=== PATIENT | male | born 1945 | race Caucasian/White ===

== ENCOUNTER 2020-11-07 20:08 | Inpatient (IN) | payer MEDICARE, SELFPAY ==
[~2020-11-07] VITALS: Ht 172.7 cm; Wt 65.5 kg
[2020-11-07] MEDS ORDERED: THIAMINE 100 MG TAB PO SCH (21:00)
[2020-11-07] MEDS ORDERED: MAALOX 30 ML SUSP *UDC PO PRN (21:15)
[2020-11-07] MEDS ORDERED: MOM 30ML SUSPENSION UDC PO PRN (21:15)
[2020-11-07] MEDS ORDERED: LORazepam 2 MG TAB PO PRN (21:15)
[2020-11-07] MEDS ORDERED: ACETAMINOPHEN TAB 650MG DOSE (2X325MG) PO PRN (21:15)
--- NOTE | 2020-11-07 21:21 | HPEPDOC ---
[facility] Medical History & Physical Date of Admission Nov 07, 2020 Date of Service: Nov 07, 2020 Attending Physician: MÓNICA ARSHAD MD History and Physical TIME OF SERVICE: 945pm CHIEF COMPLAINT: altered mental status HISTORY OF PRESENT ILLNESS: The history was obtained from chart review; the patient was sedated after receiving Ativan. Based on records from [facility] had a fall about 1 week ago and hurt he left side of his chest. Besides the trauma, yesterday he was in his usual state of health and gone out to a bar to drink alcohol; today his family found him in a confused state and called EMS. En route to [facility] ER he became combative and was given Ativan. Based on the ER notes the patient was intermittently arousable w sternal rub but proceeded to fall asleep again. Test results from [facility]: WBC 8.7, Hg 15.1, Plt 209, INR 1, PT 11, Sodium 123, K 4, Cl 88, CO2 25, BUN 11, Cr 0.9, Gluc 107, T Bii 0.8, ALT 22, AST 27, ALP 97, albumin 3.3, Ca 8.6. Mag 1.5, Phosp 3 UA unremarkable. Chest xray Acute nondisplaced fracture of the lateral aspect of the left eight rib. CT brain: 1 Chronic lacunar infarction right thalamus. 2 Moderate diffuse cerebral atrophy and chronic white matter microvascular disease. 3 No acute hemorrhage, acute infarction, or mass effect is identified. EKG NSR w a rate of 78. Providers at [facility] noted that the patients sodium was previously 142 on May 30, 2012. The patient was diagnosed with medical comma, frequent falls with possible concussion & hyponatremia; the initial plan was to admit him to the hospital but providers at [facility] rejected the request for admission because they felt that he needed to be transferred to another facility for a higher level of care where he could be seen by a Neurologist and or Neurosurgeon. accepted the patient to our facility. Per d/w our MINING AND QUARRYING MACHINERY REPAIRER Josiah the patient received 10ml of 3% normal saline prior to transfer here. REVIEW OF SYSTEMS: unable to obtain because the patient is confused. PAST MEDICAL/ SURGICAL HISTORY: NIDDM, essential HTN SOCIAL HISTORY: Drinks alcohol, quit smoking in 1991 but chews tobacco FAMILY HISTORY: unable to obtain because the patient is altered ALLERGIES: Please see below. HOME MEDICATIONS: Please see below. PHYSICAL EXAMINATION: Vital Signs Date Time Temp Pulse Resp B/P (MAP) Pulse Ox O2 Delivery O2 Flow Rate FiO2 11/07/20 22:00 97.6 78 14 153/76 (101) 89 Nasal Cannula 2.0 GENERAL APPEARANCE: slim build / NAD INTEGUMENT: he has ecchymosis on bilateral lower arms HEENT: pupils sluggish / MM pink but dry CARDIOVASCULAR: RRR/NMRG / no LE edema LUNGS: CTAB on RA ABDOMEN: contour scaphoid / soft, he grimaces with palpation MUSCULOSKELETAL: NCAT NEUROLOGICAL: unable to complete full neuro exam because the patient is sedated / normal Babinski reflex on the right / no response when I attempt to elicit Babinski reflex on the left PSYCHIATRIC: RAAS score -4 to -5 MICROBIOLOGY: Respiratory panel pending. ASSESSMENT: Mr. Russell is a 75 yr old M w a hx of NIDDM, essential HTN & alcohol abuse who was transferred from [facility] for evaluation of encephalopathy and hyponatremia. PLAN: 1 Encephalopathy Possibly due to hyponatremia + Ativan Plan: admit to ICU / frequent neurochecks/ bed rest, continuous pulse ox, aspiration precautions, fall an and seizure precautions / f/u COVID 19, ammonia, prolactin, ABG, TSH, drug screen & MRI brain in the morning /the day time team may consider consulting Neurology 2 Hyponatremia Likely due to HTCZ & Losartan; it is also possibly that he has a component of beer potomania This may have caused his falls as well Plan: pending serum osmol, Uosmol, [place] may resume IVF / mccloud to monitor UOP / f/u serial BMPs / hold HTCZ and losartan / the day time team may consider consulting Nephrology 3 Hypoxemia Likely 2/2 hypoventilation form Ativan Plan:oxygen / pulse ox 4 NIDDM Plan f/u accuchecks / hypoglycemia protocol / sliding scale insulin / hold oral anti-glycemics / f/u A1C 5 Essential HTN Plan: IV hydralazine PRN / diuretic and ACEI on hold bc of low sodium DVT px w Lovenox (Deb Prediction Score to determine the in-patient risk of VTE & need for anticoagulation is 4 .Individuals with a Deb Score <4 are low risk of VTE and thromboprophylaxis should be considered on a awyp-wk-iiui basis while individuals with a Deb score >4 are high risk for VTE and will likely benefit from thromboprophylaxis unless the patient has major contraindication such as major bleeding or thrombocytopenia). Dispo: home after at least 2 midnights stay Home Medications Scheduled Aspirin (Aspirin EC) 81 Mg Tablet.dr, 81 MG PO DAILY Cholecalciferol (Vitamin D3) (Vitamin D3) 1,000 Unit Tablet, 2,000 UNITS PO DAILY Folic Acid (Folic Acid) 1 Mg Tablet, 1 MG PO DAILY Hydrochlorothiazide (Hydrochlorothiazide) 25 Mg Tablet, 25 MG PO DAILY Losartan Potassium (Losartan Potassium) 100 Mg Tablet, 100 MG PO DAILY Metformin HCl (Metformin HCl) 500 Mg Tablet, 500 MG PO BID Allergies Coded Allergies: No Known Allergies (Verified Allergy, Unknown, 11/07/20) A-FIB/CHADSVASC A-FIB History Current/History of A-Fib/PAF?: No Current PO Anticoag Therapy: No MÓNICA ARSHAD MD Nov 07, 2020 21:21
[2020-11-07 22:00] VITALS: BP 153/76
[2020-11-07 22:30] VITALS: BP 156/83
[2020-11-07 22:57] LABS: HEMATOCRIT 43.2 % (42.0-52.0); HEMOGLOBIN 15.3 g/dl (13.5-17.5); MEAN CORPUSCULAR HEMOGLOBIN 31.4 pg (27.0-33.0); MEAN CORPUSCULAR HGB CONC 35.4 g/dl (32.0-36.5); MEAN CORPUSCULAR VOLUME 88.7 fl (80.0-96.0); PLATELET COUNT, AUTOMATED 239 10^3/uL (150-450); RED BLOOD COUNT 4.87 10^6/uL (4.30-6.10)
[2020-11-07 23:00] VITALS: BP 168/84
[2020-11-07 23:08] LABS: PROTHROMBIN TIME 13.6 SECONDS (12.7-14.5)
[2020-11-07] MEDS ORDERED: LOSA100T50 PO (23:10)
[2020-11-07] MEDS ORDERED: HYDR-3490 PO (23:10)
[2020-11-07] MEDS ORDERED: D31000TA2 PO (23:10)
[2020-11-07] MEDS ORDERED: ASPI-161 PO (23:10)
[2020-11-07] MEDS ORDERED: FOLI1TAB11 PO (23:10)
[2020-11-07] MEDS ORDERED: HOME MED LIST COMPLETE! XX SCH (23:10)
[2020-11-07] MEDS ORDERED: METF-839 PO (23:10)
[2020-11-07 23:30] VITALS: BP 158/79
[2020-11-07 23:33] LABS: ALBUMIN 3.2 GM/DL (3.2-5.2); ALT/SGPT 24 U/L (12-78); BILIRUBIN,TOTAL 0.8 MG/DL (0.2-1.0); BLOOD UREA NITROGEN 10 MG/DL (7-18); CALCIUM LEVEL 8.6 MG/DL (8.8-10.2); CARBON DIOXIDE LEVEL 30 MEQ/L (21-32); CHLORIDE LEVEL 87 MEQ/L (98-107); CREATININE FOR GFR 0.84 MG/DL (0.70-1.30); GLOMERULAR FILTRATION RATE > 60.0 (>42); GLUCOSE, FASTING 96 MG/DL (70-100); MAGNESIUM LEVEL 1.7 MG/DL (1.8-2.4); POTASSIUM SERUM 3.7 MEQ/L (3.5-5.1); SODIUM LEVEL 125 MEQ/L (136-145); TOTAL PROTEIN 6.9 GM/DL (6.4-8.2)
[2020-11-07 23:48] LABS: ABG BASE EXCESS 0.1 (-2.0-2.0); ABG O2 SATURATION 97.2 % (95.0-99.0); ABG PARTIAL PRESSURE CO2 41.8 mmHg (35.0-45.0); ABG STANDARD HCO3 24.5 MEQ/L (22.0-26.0); ABG TOTAL CO2 26.3 MEQ/L (23.0-31.0); ABG pH (ARTERIAL) 7.395 UNITS (7.350-7.450)
[2020-11-08] VITALS (24 sets, daily range): BP systolic 127–191; BP diastolic 66–97
[2020-11-08] MEDS ORDERED: UNRESOLVED CLARIFICATION ENTRY XX SCH (00:01)
[2020-11-08 00:17] LABS: SODIUM,RANDOM URINE 66 MEQ/L
[2020-11-08 00:20] LABS: OSMOLALITY URINE 330 MOSM/KG (50-1400)
[2020-11-08 00:24] LABS: OSMOLALITY SERUM 253 MOSM/KG (280-301)
[2020-11-08] MEDS ORDERED: DEXTROSE 50% 50 ML SYRINGE IV PRN (00:25)
[2020-11-08] MEDS ORDERED: GLUCAGON INJ 1MG VIAL SC PRN (00:25)
[2020-11-08] MEDS ORDERED: GLUCOSE 4GM CHEW TABLET PO PRN (00:25)
[2020-11-08 00:28] LABS: TROPONIN I < 0.02 NG/ML (< 0.10)
[2020-11-08] MEDS: NS 1,000 ML IV SCH ×2 (00:34→09:54)
[2020-11-08] MEDS ORDERED: MAG SULF 1GM/100ML (MAG RUN) 1 GM in IV 1 EA IV ONE (01:00)
[2020-11-08 01:54] LABS: RSV AMPLIFICATION NEGATIVE (NEGATIVE)
[2020-11-08] MEDS: hydrALAZINE 20MG/ML 1ML VIAL (J0360 PER 20MG) IV PRN ×3 (03:41→17:44)
[2020-11-08 03:49] LABS: AMPHETAMINES LEVEL URINE NEGATIVE (NEGATIVE); BARBITURATES URINE NEGATIVE (NEGATIVE); BENZODIAZEPINES URINE POSITIVE (NEGATIVE); CANNABINOIDS URINE NEGATIVE (NEGATIVE); COCAINE METABOLITE URINE NEGATIVE (NEGATIVE); METHADONE URINE NEGATIVE (NEGATIVE); OPIATES URINE NEGATIVE (NEGATIVE); PHENCYCLIDINE URINE NEGATIVE (NEGATIVE)
[2020-11-08] MEDS: HumaLOG INSULIN (NovoLOG) PER UNIT SC SCH ×4 (06:00→18:00)
[2020-11-08 06:56] LABS: HEMATOCRIT 47.3 % (42.0-52.0); HEMOGLOBIN 16.3 g/dl (13.5-17.5); MEAN CORPUSCULAR HEMOGLOBIN 30.9 pg (27.0-33.0); MEAN CORPUSCULAR HGB CONC 34.5 g/dl (32.0-36.5); MEAN CORPUSCULAR VOLUME 89.6 fl (80.0-96.0); PLATELET COUNT, AUTOMATED 242 10^3/uL (150-450); RED BLOOD COUNT 5.28 10^6/uL (4.30-6.10)
[2020-11-08 07:28] LABS: ALBUMIN 3.3 GM/DL (3.2-5.2); ALT/SGPT 26 U/L (12-78); BILIRUBIN,TOTAL 0.9 MG/DL (0.2-1.0); BLOOD UREA NITROGEN 8 MG/DL (7-18); CALCIUM LEVEL 9.1 MG/DL (8.8-10.2); CARBON DIOXIDE LEVEL 30 MEQ/L (21-32); CHLORIDE LEVEL 87 MEQ/L (98-107); CREATININE FOR GFR 0.86 MG/DL (0.70-1.30); GLOMERULAR FILTRATION RATE > 60.0 (>42); GLUCOSE, FASTING 105 MG/DL (70-100); POTASSIUM SERUM 4.3 MEQ/L (3.5-5.1); SODIUM LEVEL 124 MEQ/L (136-145); TOTAL PROTEIN 7.2 GM/DL (6.4-8.2)
[2020-11-08 07:50] LABS: HEMOGLOBIN A1c 5.2 %
[2020-11-08] MEDS: MULTIVITAMINS/MINERALS THERAP 1 TAB PO SCH (08:53)
[2020-11-08] MEDS: FOLIC ACID 1 MG TAB PO SCH (08:53)
[2020-11-08] MEDS: THIAMINE 200MG 2ML VIAL IV SCH (08:54)
[2020-11-08] MEDS: ENOXAPARIN 40MG/0.4ML SYRINGE (J1650 PER 10MG) SC SCH (08:54)
[2020-11-08 12:15] LABS: BLOOD UREA NITROGEN 7 MG/DL (7-18); CALCIUM LEVEL 8.6 MG/DL (8.8-10.2); CARBON DIOXIDE LEVEL 28 MEQ/L (21-32); CHLORIDE LEVEL 89 MEQ/L (98-107); CREATININE FOR GFR 0.78 MG/DL (0.70-1.30); GLOMERULAR FILTRATION RATE > 60.0 (>42); GLUCOSE, FASTING 97 MG/DL (70-100); POTASSIUM SERUM 3.9 MEQ/L (3.5-5.1); SODIUM LEVEL 123 MEQ/L (136-145)
--- NOTE | 2020-11-08 15:03 | IPNPDOC ---
Subjective Date Seen The patient was seen on 11/08/20. Subjective Chief Complaint/HPI Mr. Russell is a 75 year old male with NIDDM, hypertension, and alcohol use disorder who presents from [facility] for AMS and hyp onatremia. This morning, he was arousable, but not coherent. Still very lethargic which may have been from the versed and lorazepam. Consulted nephrology for hyponatremia, recommendations appreciated. Otherwise, hyponatremia did not correct with NS. Hyponatremia slightly worsened with fluids. Patient may have SIADH. Stopped fluids. Continue to monitor sodium levels. Otherwise, I spoke with patient's PCP Dr. Chuck Muñoz ([phone]). He tells me that on September 22, patient sodium was 135. Then on October 31, patient's hydrochlorothiazide was increased from 12.5mg to 25mg. Patient drinks about 12 pack beer a day. Objective Physical Examination General Exam: Positive: No Acute Distress Eye Exam: Negative: Sclera icteric Chest Exam: Positive: Clear to auscultation Heart Exam: Positive: Rate Normal, Regular Rhythm Abdomen Exam: Positive: Normal bowel sounds, Soft; Negative: Tenderness Neuro Exam: Negative: Normal Speech Psych Exam: Negative: Mental status NL Assessment /Plan Assessment Mr. Russell is a 75 year old male with NIDDM, hypertension, and alcohol use disorder who presents from [facility] for AMS and hyponatremia. HCTZ may be contributing to patient's hyponatremia. Patient was given NS, but sodium worsened. Possible SIADH. Fluids were held. Nephrology consulted, recommendations appreciated. Plan/VTE VTE Prophylaxis Ordered?: Yes Plan 1. Hyponatremia Possibly HCTZ, beers potomania, or SIADH We will discontinue fluids Monitor sodium frequently Nephrology consulted, recommendations appreciated 2. Encephalopathy May be secondary to benzodiazepines Ammonia within normal, ABG within normal, UA unremarkable 3. Hypoxemia Resolved, patient now on room air 4. Woe-zxkbjvp-iqjuicvhf diabetes mellitus Hold Metformin Physical insulin and hypoglycemic protocol 5. Essential hypertension HCTZ and losartan on hold due to hyponatremia As needed IV hydralazine instead 6. Alcohol use disorder Thiamine changed to IV CIWA protocol 7. DVT prophylaxis Lovenox Disposition: Pending improvement in mental status and hyponatremia VS, I&O, 24H, Fishbone Vital Signs/I&O Vital Signs Date Time Temp Pulse Resp B/P (MAP) Pulse Ox O2 Delivery O2 Flow Rate FiO2 11/08/20 13:01 89 127/72 (90) 94 Room Air 11/08/20 12:00 98.8 15 11/08/20 09:00 2.0 I&O- Last 24 Hours up to 6 AM 11/08/20 06:00 Intake Total 700 ml Output Total 340 ml Balance 360 ml Laboratory Data 24H LABS Laboratory Tests 2 11/07/20 22:47: Nucleated Red Blood Cells % (auto) 0.0, Prothrombin Time 13.6, Prothromb Time International Ratio 1.00, Anion Gap 8, Glomerular Filtration Rate > 60.0, Osmolality 253L, Calcium Level 8.6L, Magnesium Level 1.7L, Total Bilirubin 0.8, Aspartate Amino Transf (AST/SGOT) 29, Alanine Aminotransferase (ALT/SGPT) 24, Alkaline Phosphatase 97, Troponin I < 0.02, Total Protein 6.9, Albumin 3.2, Alb umin/Globulin Ratio 0.9, Thyroid Stimulating Hormone (TSH) 1.350, Prolactin 12.0 11/07/20 23:35: Blood Gas Bicarbonate Standard 24.5, Arterial Blood pH 7.395, Arterial Blood Partial Pressure CO2 41.8, Arterial Blood Partial Pressure O2 91.0, Arterial Blood Total CO2 26.3, Arterial Blood HCO3 25.0, Arterial Blood Base Excess 0.1, Arterial Blood Oxygen Saturation 97.2 11/07/20 23:51: Urine Color YELLOW, Urine Appearance CLEAR, Urine pH 6.0, Urine Specific [place] 1.008, Urine Protein NEGATIVE, Urine Glucose (UA) NEGATIVE, Urine Ketones TRACEH, Urine Blood 1+H, Urine Nitrite NEGATIVE, Urine Bilirubin NEGATIVE, Urine Urobilinogen 2.0H, Urine Leukocyte Esterase NEGATIVE, Urine WBC (Auto) 1, Urine RBC (Auto) 6H, Urine Hyaline Casts (Auto) 0, Urine Bacteria (Auto) NEGATIVE, Urine Squamous Epithelial Cells 0, Urine Mucus (Auto) SMALL, Urine Sperm (Auto) , Urine Osmolality 330, Urine Random Sodium 66, Urine Opiates Screen NEGATIVE, Urine Methadone Screen NEGATIVE, Urine Barbiturates Screen NEGATIVE, Urine Phencyclidine Screen NEGATIVE, Urine Amphetamines Screen NEGATIVE, Urine Benzodiazepines Screen POSITIVEH, Urine Cocaine Metabolite Screen NEGATIVE, Urine Cannabinoids Screen NEGATIVE 11/08/20 00:38: Ammonia 26 11/08/20 00:57: Coronavirus (COVID-19)(PCR) NEGATIVE, Influenza Type A (RT-PCR) NEGATIVE, Infl uenza Type B (RT-PCR) NEGATIVE, Respiratory Syncytial Virus (PCR) NEGATIVE 11/08/20 06:10: Bedside Glucose (Misc Panel) 105 11/08/20 06:46: Nucleated Red Blood Cells % (auto) 0.0, Anion Gap 7L, Glomerular Filtration Rate > 60.0, Estimated Mean Plasma Glucose 103, Hemoglobin A1c 5.2, Calcium Level 9.1, Total Bilirubin 0.9, Aspartate Amino Transf (AST/SGOT) 35, Alanine Aminotransferase (ALT/SGPT) 26, Alkaline Phosphatase 99, Total Protein 7.2, Albumin 3.3, Albumin/Globulin Ratio 0.8 11/08/20 11:31: Anion Gap 6L, Glomerular Filtration Rate > 60.0, Calcium Level 8.6L CBC/BMP Laboratory Tests 11/07/20 22:47 11/08/20 06:46 11/08/20 11:31 OSVALDO VARGAS DO Nov 08, 2020 14:44
[2020-11-08 15:48] LABS: BLOOD UREA NITROGEN 7 MG/DL (7-18); CALCIUM LEVEL 8.7 MG/DL (8.8-10.2); CARBON DIOXIDE LEVEL 28 MEQ/L (21-32); CHLORIDE LEVEL 89 MEQ/L (98-107); CREATININE FOR GFR 0.86 MG/DL (0.70-1.30); GLOMERULAR FILTRATION RATE > 60.0 (>42); GLUCOSE, FASTING 91 MG/DL (70-100); POTASSIUM SERUM 3.7 MEQ/L (3.5-5.1); SODIUM LEVEL 123 MEQ/L (136-145)
[2020-11-08 16:03] LABS: HEMATOCRIT 45.7 % (42.0-52.0); HEMOGLOBIN 15.9 g/dl (13.5-17.5); MEAN CORPUSCULAR HEMOGLOBIN 31.1 pg (27.0-33.0); MEAN CORPUSCULAR HGB CONC 34.8 g/dl (32.0-36.5); MEAN CORPUSCULAR VOLUME 89.4 fl (80.0-96.0); PLATELET COUNT, AUTOMATED 246 10^3/uL (150-450); RED BLOOD COUNT 5.11 10^6/uL (4.30-6.10); WHITE BLOOD COUNT 10.4 10^3/uL (4.0-10.0)
[2020-11-08] MEDS ORDERED: LORazepam 2 MG/ML VIAL IM PRN (16:35)
[2020-11-08] MEDS: LORazepam 2 MG/ML VIAL IV PRN (17:12)
[2020-11-08 19:24] LABS: BLOOD UREA NITROGEN 7 MG/DL (7-18); CARBON DIOXIDE LEVEL 26 MEQ/L (21-32); CHLORIDE LEVEL 90 MEQ/L (98-107); CREATININE FOR GFR 0.76 MG/DL (0.70-1.30); GLOMERULAR FILTRATION RATE > 60.0 (>42); GLUCOSE, FASTING 93 MG/DL (70-100); POTASSIUM SERUM 3.9 MEQ/L (3.5-5.1); SODIUM LEVEL 125 MEQ/L (136-145)
--- NOTE | 2020-11-08 19:57 | ECGEPIP ---
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
[2020-11-09] VITALS (14 sets, daily range): BP systolic 147–205; BP diastolic 65–98; O2SAT 90–98
[2020-11-09] MEDS: hydrALAZINE 20MG/ML 1ML VIAL (J0360 PER 20MG) IV PRN ×2 (00:43→13:00)
[2020-11-09] MEDS: LORazepam 2 MG/ML VIAL IV PRN ×4 (00:43→19:14)
[2020-11-09 02:44] LABS: BLOOD UREA NITROGEN 8 MG/DL (7-18); CALCIUM LEVEL 8.7 MG/DL (8.8-10.2); CARBON DIOXIDE LEVEL 21 MEQ/L (21-32); CHLORIDE LEVEL 90 MEQ/L (98-107); CREATININE FOR GFR 0.75 MG/DL (0.70-1.30); GLOMERULAR FILTRATION RATE > 60.0 (>42); GLUCOSE, FASTING 95 MG/DL (70-100); POTASSIUM SERUM 5.3 MEQ/L (3.5-5.1); SODIUM LEVEL 120 MEQ/L (136-145)
[2020-11-09] MEDS: NS 1,000 ML IV SCH ×2 (03:11→09:04)
[2020-11-09] MEDS: HumaLOG INSULIN (NovoLOG) PER UNIT SC SCH ×5 (06:00→23:48)
[2020-11-09 07:59] LABS: BLOOD UREA NITROGEN 7 MG/DL (7-18); CALCIUM LEVEL 8.9 MG/DL (8.8-10.2); CARBON DIOXIDE LEVEL 24 MEQ/L (21-32); CHLORIDE LEVEL 92 MEQ/L (98-107); CREATININE FOR GFR 0.71 MG/DL (0.70-1.30); GLOMERULAR FILTRATION RATE > 60.0 (>42); GLUCOSE, FASTING 95 MG/DL (70-100); POTASSIUM SERUM 4.7 MEQ/L (3.5-5.1); SODIUM LEVEL 124 MEQ/L (136-145)
[2020-11-09] MEDS: MULTIVITAMINS/MINERALS THERAP 1 TAB PO SCH (08:10)
[2020-11-09] MEDS: FOLIC ACID 1 MG TAB PO SCH (08:10)
[2020-11-09 08:47] LABS: URIC ACID 7.6 MG/DL (3.5-7.2)
[2020-11-09] MEDS: ENOXAPARIN 40MG/0.4ML SYRINGE (J1650 PER 10MG) SC SCH (09:00)
[2020-11-09] MEDS: THIAMINE 200MG 2ML VIAL IV SCH (09:00)
--- NOTE | 2020-11-09 11:58 | CR ---
CONSULTATION DATE: 11/09/2020 REFERRING PHYSICIAN: OSVALDO VARGAS DO REASON FOR CONSULTATION: Hyponatremia. HISTORY OF PRESENT ILLNESS: Mr. Russell is a 75-year-old gentleman with a known history of hypertension, Type 2 diabetes and history of alcohol use. Apparently, he fell about a week ago at home and fractured his left 8th rib. On the 06 of November he was in his usual state of health and went to a bar. The next day his family found him confused and he was brought to the Emergency Room at [facility] via ambulance. He was combative and en route to the ER he was given Ativan. In the Emergency Room he was found to have a sodium level of 123. He was found to have altered mentation and CT of he head did show an old lacunar infarct and moderate diffuse cerebral atrophy without any acute infarct or bleed. He was transferred to [facility] for possible neurological evaluation. Here, he was admitted to the Intensive Care Unit and a Nephrology consultation was requested due to hyponatremia. His sodium level was 124. The patient was seen this morning in the Intensive Care Unit. I received a call about 3 a.m. today and it was reported the patient has decreased urine output and also sodium level has gone down to 120 while his IV fluid was stopped. Patient has been NPO due to altered mentation. I advised to resume IV Normal Saline at 100 ml/hr and this morning now his sodium is up to 124. PAST MEDICAL/SURGICAL HISTORY: 1. Hypertension. 2. Type 2 diabetes. HOME MEDICATIONS: Losartan, metformin, Hydrochlorothiazide, aspirin and vitamin D. ALLERGIES: Patient has no known drug allergies. PERSONAL AND SOCIAL HISTORY: Patient quit smoking in 1991. He is a binge drinker of beer. FAMILY HISTORY: Noncontributory. Patient is awake today but still not fully oriented and not able to provide any reliable information. REVIEW OF SYSTEMS: The nursing staff reports the patient has been pulling his IVs and is quite combative. At the time of my visit, he is agitated but able to answer simple questions. He could not tell me the day or month. He has no fever or chills noticed since admission. His face is flushed but head is atraumatic. Denies any ear, nose or throat problems. Cardiovascular system: Significant for hypertension. Patient has no leg edema. Respiratory system is negative for hemoptysis or pleuritic type of chest pain. GI: Negative for vomiting or diarrhea. Patient has been NPO due to altered mentation. Musculoskeletal: Fall at home and left 8th rib fracture. No lower extremity edema noticed. Skin is negative for rash or ulcers. Endocrine: Significant for Type 2 diabetes. His thyroid was noticed to be normal on his admission labs. PHYSICAL EXAMINATION: GENERAL APPEARANCE: Patient is awake, somewhat agitated and not fully oriented. He could not tell the day or the month correctly. VITAL SIGNS: Temperature 97.4 degrees Fahrenheit, heart rate 92 per minute, and respiratory rate 16 per minute. Blood pressure 160/70 mmHg and oxygen saturation 93% on room air. HEENT: Head is atraumatic. NECK: Supple without JVD or thyroid enlargement. HEART: Heart sounds are regular. LUNGS: Clear to auscultation. ABDOMEN: Soft and nontender. Bowel sounds are normal. EXTREMITIES: Without any cyanosis or clubbing. SKIN: Dry without any rash or ulcers. NEUROLOGIC: He is awake and moving all four limbs. He is somewhat confused and disoriented. LABORATORY DATA: Today's labs shows WBC count of 10.4, hemoglobin 15.9 and hematocrit 45.7. Platelets are 246,000. Sodium is 124 today, potassium 4.7, chloride 92, CO2 24, BUN 7 and creatinine is 0.71. Glucose is 95 and calcium is 8.9. At 2 a.m. today his sodium was 120 and potassium was 5.3. On admission his sodium was 124 and then it has been between 123 and 125. Urinalysis was negative for any protein and 1+ blood noticed. Urine sodium was reported at 66 and urine osmolality at 330. Blood gas was normal with pH of 7.39, pCO2 41.8 and pO2 91, bicarbonate 24.5. PROBLEMS: 1. Hyponatremia most likely this is related to dehydration and use of diuretic. He was on Hydrochlorothiazide 25 mg, the patient also has a history of binge beer drinking which may have contributed to his hyponatremia. He is NPO and dehydrated at this point. On clinical exam he is hypovolemic. He was given 3% saline either by the ER physician or by the admitting physician only for a few minutes which has been stopped. He is currently on IV normal saline which is an appropriate fluid for him. His electrolytes will be checked again later this afternoon. Patient is still NPO, however I feel that he can probably swallow and can resume oral intake. 2. Altered mentation, most likely patient had toxic metabolic encephalopathy. His mentation seems to be improving although he is still somewhat agitated, confused and disoriented. I do not feel that hyponatremia is causing his altered mentation and there is no indication to try to correct his hyponatremia on an urgent basis. It is likely to correct with IV normal saline and I would like to improve it slowly. 3. Hyperkalemia. Patient has mild hyperkalemia earlier this morning which has already improved and does not need any intervention. Thank you for involving me in the care of Mr. Russell. I will follow him along with you. CHRIST
[2020-11-09] MEDS ORDERED: THIAMINE 200MG 2ML VIAL IV SCH (14:00)
--- NOTE | 2020-11-09 14:36 | IPNPDOC ---
Subjective Date Seen The patient was seen on 11/09/20. Subjective Chief Complaint/HPI Mr. Russell is a 75 year old male with NIDDM, hypertension, and alcohol use disorder who presents from [facility] for AMS and hyp onatremia. Patient was seen in the morning. Today, he is more awake, but also more combative. He says he has to get home and does not give a reason why. He cannot remember what happened prior to coming to the hospital. He has ripped out multiple IV sites. Objective Physical Examination General Exam: Negative: Cooperative Eye Exam: Negative: Sclera icteric Chest Exam: Positive: Clear to auscultation Heart Exam: Positive: Rate Normal, Regular Rhythm Abdomen Exam: Positive: Normal bowel sounds, Soft; Negative: Tenderness Neuro Exam: Positive: Normal Speech Psych Exam: Negative: Mental status NL, Oriented x 3 Assessment /Plan Assessment Mr. Russell is a 75 year old male with NIDDM, hypertension, and alcohol use disorder who presents from [facility] for AMS and h yponatremia. Alcohol use and HCTZ most likely contributed to patient's hyponatremia. Nephrology consulted for hyponatremia, recommendations appreciated. Otherwise, unclear etiology to patient's AMS. Ammonia negative, pCO2 on ABG within normal, UA not suggestive of UTI, no fever or significant leukocytosis to suggest infection, renal function and BUN at baseline, calcium not elevated. Considering Wernicke's encephalopathy as a possible cause, thus will increase thiamine dosage and frequency. Hyponatremia is also a possible cause. Attempted MRI, but patient too combative. Plan/VTE VTE Prophylaxis Ordered?: Yes Plan 1. Hyponatremia Possibly caused by HCTZ and beers potomania Nephrology consulted, recommendations appreciated 2. Toxic metabolic encephalopathy -Unclear etiology -Ammonia negative, pCO2 on ABG within normal, UA not suggestive of UTI, no fever or significant leukocytosis to suggest infection, renal function and BUN at baseline, calcium not elevated, Utox only positive for benzodiazepine which he is receiving. -Wernicke encephalopathy is a possibility, increased thiamine dosage and frequency -Hyponatremia still a possibility 3. Hypoxemia Resolved, patient now on room air 4. Ieo-jcodmdn-rctmfeyxo diabetes mellitus Hold Metformin Physical insulin and hypoglycemic protocol 5. Essential hypertension HCTZ and losartan on hold due to hyponatremia As needed IV hydralazine instead 6. Alcohol use disorder Thiamine changed to IV CIWA protocol 7. DVT prophylaxis Lovenox Disposition: Pending improvement in mental status and hyponatremia VS, I&O, 24H, Robinbonmeredith Vital Signs/I&O Vital Signs Date Time Temp Pulse Resp B/P (MAP) Pulse Ox O2 Delivery O2 Flow Rate FiO2 11/09/20 13:00 196/96 11/09/20 08:00 97.4 92 16 93 Room Air 11/08/20 09:00 2.0 I&O- Last 24 Hours up to 6 AM 11/09/20 06:00 Intake Total 650 ml Output Total 955 ml Balance -305 ml Laboratory Data 24H LABS Laboratory Tests 2 11/08/20 15:03: Anion Gap 6L, Glomerular Filtration Rate > 60.0, Calcium Level 8.7L 11/08/20 15:49: Nucleated Red Blood Cells % (auto) 0.0 11/08/20 17:55: Bedside Glucose (Misc Panel) 91 11/08/20 18:33: Anion Gap 9, Glomerular Filtration Rate > 60.0, Calcium Level 9.0 11/09/20 00:35: Bedside Glucose (Misc Panel) 94 11/09/20 02:05: Anion Gap 9, Glomerular Filtration Rate > 60.0, Calcium Level 8.7L 11/09/20 06:54: Anion Gap 8, Glomerular Filtration Rate > 60.0, Calcium Level 8.9, Uric Acid 7.6H 11/09/20 12:53: Bedside Glucose (Misc Panel) 102 CBC/BMP Laboratory Tests 11/08/20 15:03 11/08/20 15:49 11/08/20 18:33 11/09/20 02:05 11/09/20 06:54 OSVALDO VARGAS DO Nov 09, 2020 14:35
[2020-11-09 14:55] LABS: BLOOD UREA NITROGEN 8 MG/DL (7-18); CARBON DIOXIDE LEVEL 26 MEQ/L (21-32); CHLORIDE LEVEL 92 MEQ/L (98-107); CREATININE FOR GFR 0.77 MG/DL (0.70-1.30); GLOMERULAR FILTRATION RATE > 60.0 (>42); GLUCOSE, FASTING 103 MG/DL (70-100); POTASSIUM SERUM 4.1 MEQ/L (3.5-5.1); SODIUM LEVEL 127 MEQ/L (136-145)
[2020-11-09] MEDS ORDERED: LIDOCAINE 1% MDV 20ML VIAL As Ordered ONE (15:52)
[2020-11-09] MEDS: THIAMINE INJection 500 MG in NS 100 ML IV SCH ×2 (15:55→23:39)
[2020-11-09 18:28] LABS: MAGNESIUM LEVEL 1.8 MG/DL (1.8-2.4)
[2020-11-09] MEDS: diphenhydrAMINE 50MG/ML VIAL (J1200) IM PRN (19:43)
[2020-11-09] MEDS: HALOPERIDOL 5MG/ML VIAL (J1630 PER 1) IM PRN (19:43)
[2020-11-09] MEDS: NS 0.45% 1,000 ML IV SCH (20:39)
[2020-11-10] VITALS (16 sets, daily range): BP systolic 143–197; BP diastolic 64–90; O2SAT 98–99
[2020-11-10] MEDS ORDERED: MAG SULF 1GM/100ML (MAG RUN) 1 GM in IV 1 EA IV ONE (01:00)
[2020-11-10] MEDS ORDERED: LORazepam 2 MG/ML VIAL As Ordered ONE ×2 (04:00→20:26)
[2020-11-10] MEDS: LORazepam 2 MG/ML VIAL IV PRN ×4 (04:03→20:28)
[2020-11-10] MEDS: hydrALAZINE 20MG/ML 1ML VIAL (J0360 PER 20MG) IV PRN ×3 (04:15→20:00)
[2020-11-10 05:00] LABS: BASO # 0.1 10^3/uL (0.0-0.2); BASO % 0.7 % (0.0-1.0); EOS # 0.2 10^3/uL (0.0-0.5); EOS % 2.3 % (0.0-3.0); HEMATOCRIT 44.3 % (42.0-52.0); HEMOGLOBIN 14.9 g/dl (13.5-17.5); LYMPH # 1.1 10^3/uL (1.5-5.0); LYMPH % 12.7 % (24.0-44.0); MEAN CORPUSCULAR HEMOGLOBIN 30.7 pg (27.0-33.0); MEAN CORPUSCULAR HGB CONC 33.6 g/dl (32.0-36.5); MEAN CORPUSCULAR VOLUME 91.3 fl (80.0-96.0); MONO # 1.3 10^3/uL (0.0-0.8); MONO % 14.4 % (2.0-8.0); NEUTROPHILS # 6.2 10^3/uL (1.5-8.5); NEUTROPHILS % 69.3 % (36.0-66.0); PLATELET COUNT, AUTOMATED 246 10^3/uL (150-450); RED BLOOD COUNT 4.85 10^6/uL (4.30-6.10); WHITE BLOOD COUNT 8.9 10^3/uL (4.0-10.0)
[2020-11-10] MEDS: HALOPERIDOL 5MG/ML VIAL (J1630 PER 1) IM PRN ×3 (05:02→18:13)
[2020-11-10] MEDS: diphenhydrAMINE 50MG/ML VIAL (J1200) IM PRN ×3 (05:02→18:13)
[2020-11-10 05:28] LABS: ALBUMIN 2.8 GM/DL (3.2-5.2); BLOOD UREA NITROGEN 6 MG/DL (7-18); CARBON DIOXIDE LEVEL 28 MEQ/L (21-32); CHLORIDE LEVEL 95 MEQ/L (98-107); CREATININE FOR GFR 0.68 MG/DL (0.70-1.30); GLOMERULAR FILTRATION RATE > 60.0 (>42); GLUCOSE, FASTING 94 MG/DL (70-100); PHOSPHORUS LEVEL 2.8 MG/DL (2.5-4.9); POTASSIUM SERUM 3.9 MEQ/L (3.5-5.1); SODIUM LEVEL 128 MEQ/L (136-145)
[2020-11-10] MEDS: HumaLOG INSULIN (NovoLOG) PER UNIT SC SCH ×3 (06:00→18:00)
[2020-11-10 06:16] LABS: MAGNESIUM LEVEL 1.9 MG/DL (1.8-2.4)
[2020-11-10] MEDS: FOLIC ACID 1 MG TAB PO SCH (07:51)
[2020-11-10] MEDS: MULTIVITAMINS/MINERALS THERAP 1 TAB PO SCH (07:51)
[2020-11-10] MEDS: ENOXAPARIN 40MG/0.4ML SYRINGE (J1650 PER 10MG) SC SCH (08:47)
[2020-11-10] MEDS: THIAMINE INJection 500 MG in NS 100 ML IV SCH ×2 (08:47→16:12)
[2020-11-10 09:03] LABS: VITAMIN B12 LEVEL 301 PG/ML (247-911)
--- NOTE | 2020-11-10 09:12 | REP ---
PROCEDURE NAME: MIDLINE INSERTION W/ SITERITE CLINICAL INFORMATION: poor iv access. COMPARISON: None. PROCEDURE DESCRIPTION: The procedure was performed by AXEL Robles, under the direct supervision of Dr. Collins. The risks and benefits of the procedure were explained to the patient and an informed consent was obtained both verbally and written. Directly prior to the start of the procedure a formal time-out was completed in the procedure room. The left medial brachial vein was localized using ultrasound guidance. The skin was prepped and draped in sterile fashion. One mL of 1% lidocaine 10 mg/mL was used as a local anesthetic. Using ultrasound guidance the left medial brachial vein was cannulated, and a 0.018 guidewire was inserted. The needle was removed and a 5.5 Dutch dilator and peel-away sheath was inserted over the guidewire. A 5.5 Dutch dual lumen catheter was cut to a length of 8 cm. The dilator was removed and the catheter was inserted over the guidewire. The peel-away sheath was removed and the catheter was flushed with heparinized saline as per hospital protocol. The catheter was affixed to the skin and a sterile dressing was applied. The patient tolerated the procedure well and there were no immediate complications. CONCLUSION: Mid line insertion into the left medial brachial vein. <Electronically signed by Emily Webb > 11/10/20 0759 <Electronically signed by Patrick Collins > 11/10/20 0908
[2020-11-10] MEDS: NS 0.45% 1,000 ML IV SCH (09:30)
[2020-11-10] MEDS: D5W/0.45% SODIUM CHLORIDE 1,000 ML IV SCH (11:59)
--- NOTE | 2020-11-10 13:30 | IPN ---
PROGRESS NOTE DATE: 11/10/2020 SUBJECTIVE: Mr. Russell is seen this morning on his bedside in the Intensive Care Unit. The nursing staff reports that he was quite agitated and required sedation with Ativan. He is currently resting. The patient remains on IV fluid as he has failed swallowing evaluation. Last evening I switched his IV fluid from Normal Saline to half normal saline in view of correcting his hyponatremia. OBJECTIVE: GENERAL: Patient is resting comfortably and not in any distress. VITAL SIGNS: His temperature is 97 degrees Fahrenheit, heart rate is 92 per minute and respiratory rate is 14 per minute. Blood pressure is 165/86 mmHg and oxygen saturation 98% on room air. HEENT: Head is atraumatic. NECK: Supple without JVD or thyroid enlargement. HEART: Heart sounds are regular. LUNGS: No rales. He has poor inspiratory effort. ABDOMEN: Soft, bowel sounds are present. EXTREMITIES: Without any cyanosis or clubbing. LABORATORY DATA: Today's labs showed a WBC count of 8.9, hemoglobin 14.9, and hematocrit 44.3. Sodium level is up to 128, potassium is 3.9, CO2 28, BUN 6 and creatinine is 0.68. Calcium is 9.0 and phosphorus 2.8. Albumin is 2.8. PROBLEMS: 1. Hyponatremia, sodium level is improving nicely and he is currently only on half normal saline which will be continued. His electrolytes should be repleted again later this afternoon. 2. Nutrition. Patient has not received any nutrition since admission as he was altered and unable to swallow properly. He is currently only on half normal saline. I am going to switch his IV fluid to D5-1/2 normal saline in order to prevent hypoglycemia. 3. Altered mentation and agitation, most likely toxic metabolic encephalopathy and he is being managed by his Hospitalist team.
[2020-11-10 13:50] LABS: BLOOD UREA NITROGEN 6 MG/DL (7-18); CALCIUM LEVEL 8.8 MG/DL (8.8-10.2); CARBON DIOXIDE LEVEL 26 MEQ/L (21-32); CHLORIDE LEVEL 95 MEQ/L (98-107); CREATININE FOR GFR 0.69 MG/DL (0.70-1.30); GLOMERULAR FILTRATION RATE > 60.0 (>42); GLUCOSE, FASTING 106 MG/DL (70-100); POTASSIUM SERUM 3.9 MEQ/L (3.5-5.1); SODIUM LEVEL 129 MEQ/L (136-145)
--- NOTE | 2020-11-10 19:37 | IPNPDOC ---
Subjective Date Seen The patient was seen on 11/10/20. Subjective Chief Complaint/HPI Mr. Russell is a 75 year old male with NIDDM, hypertension, and alcohol use disorder who presents from [facility] for AMS and hyp onatremia. Patient was seen in the morning resting comfortably. His CIWAs were still elevated and he had Lorazepam. Patient did not pass his swallow eval yesterday, and continues with IVF. Objective Physical Examination General Exam: Negative: Cooperative Eye Exam: Negative: Sclera icteric Chest Exam: Positive: Clear to auscultation Heart Exam: Positive: Rate Normal, Regular Rhythm Abdomen Exam: Positive: Normal bowel sounds, Soft; Negative: Tenderness Neuro Exam: Positive: Normal Speech Psych Exam: Negative: Mental status NL, Oriented x 3 Assessment /Plan Assessment Mr. Russell is a 75 year old male with NIDDM, hypertension, and alcohol use disorder who presents from [facility] for AMS and hyponatremia. Alcohol use and HCTZ most likely contributed to patient's hyponatremia. Nephrology consulted for hyponatremia, recommendations appreciated. Otherwise, unclear etiology to patient's AMS. Ammonia negative, pCO2 on ABG within normal, UA not suggestive of UTI, no fever or significant leukocytosis to suggest infection, renal function and BUN at baseline, calcium not elevated. Considering Wernicke's encephalopathy as a possible cause, thus will increase thiamine dosage and frequency. Hyponatremia is also a possible cause. Attempted MRI, but patient too combative. Plan/VTE VTE Prophylaxis Ordered?: Yes Plan 1. Hyponatremia Possibly caused by HCTZ and beers potomania Nephrology consulted, recommendations appreciated 2. Toxic metabolic encephalopathy -Unclear etiology -Ammonia negative, pCO2 on ABG within normal, UA not suggestive of UTI, no fever or significant leukocytosis to suggest infection, renal function and BUN at baseline, calcium not elevated, Utox only positive for benzodiazepine which he is receiving. -Wernicke encephalopathy is a possibility, increased thiamine dosage and frequency -Hyponatremia still a possibility -Possibly related to alcoholism, CIWA still elevated 3. Hypoxemia Resolved, patient now on room air 4. Gvy-zmqtsnx-wcynmghtn diabetes mellitus Hold Metformin Physical insulin and hypoglycemic protocol 5. Essential hypertension HCTZ and losartan on hold due to hyponatremia As needed IV hydralazine instead 6. Alcohol use disorder Thiamine changed to IV CIWA protocol 7. DVT prophylaxis Lovenox Disposition: Pending improvement in mental status and hyponatremia VS, I&O, 24H, [facility] Vital Signs/I&O Vital Signs Date Time Temp Pulse Resp B/P (MAP) Pulse Ox O2 Delivery O2 Flow Rate FiO2 11/10/20 15:57 97.9 104 14 145/77 (99) 99 Room Air 11/08/20 09:00 2.0 I&O- Last 24 Hours up to 6 AM 11/10/20 06:00 Intake Total 2272 ml Output Total 980 ml Balance 1292 ml Laboratory Data 24H LABS Laboratory Tests 2 11/09/20 23:48: Bedside Glucose (Misc Panel) 99 11/10/20 04:37: Immature Granulocyte % (Auto) 0.6, Neutrophils (%) (Auto) 69.3H, Lymphocytes (%) (Auto) 12.7L, Monocytes (%) (Auto) 14.4H, Eosinophils (%) (Auto) 2.3, Basophils (%) (Auto) 0.7, Neutrophils # (Auto) 6.2, Lymphocytes # (Auto) 1.1L, Monocytes # (Auto) 1.3H, Eosinophils # (Auto) 0.2, Basophils # (Auto) 0.1, Nucleated Red Blood Cells % (auto) 0.0, Anion Gap 5L, Glomerular Filtration Rate > 60.0, Calcium Level 9.0, Phosphorus Level 2.8, Magnesium Level 1.9, Albumin 2.8L, Vitamin B12 Level 301 11/10/20 05:42: Bedside Glucose (Misc Panel) 111H 11/10/20 12:12: Bedside Glucose (Misc Panel) 104 11/10/20 13:08: Anion Gap 8, Glomerular Filtration Rate > 60.0, Calcium Level 8.8 11/10/20 18:23: Bedside Glucose (Misc Panel) 150H CBC/BMP Laboratory Tests 11/10/20 04:37 11/10/20 13:08 OSVALDO VARGAS DO Nov 10, 2020 19:37
[2020-11-11] VITALS (11 sets, daily range): BP systolic 125–178; BP diastolic 63–92
[2020-11-11] MEDS: D5W/0.45% SODIUM CHLORIDE 1,000 ML IV SCH (00:13)
[2020-11-11] MEDS: THIAMINE INJection 500 MG in NS 100 ML IV SCH ×3 (01:07→16:12)
[2020-11-11] MEDS ORDERED: SODIUM CHLORIDE 0.9% INJ 10 ML SYR IV SCH (04:40)
[2020-11-11] MEDS: HumaLOG INSULIN (NovoLOG) PER UNIT SC SCH ×5 (06:00→23:50)
[2020-11-11] MEDS: hydrALAZINE 20MG/ML 1ML VIAL (J0360 PER 20MG) IV PRN ×2 (06:15→14:29)
[2020-11-11] MEDS: SODIUM CHLORIDE 0.9% INJ 10 ML SYR IV SCH (06:16)
[2020-11-11 06:34] LABS: HEMOGLOBIN 14.8 g/dl (13.5-17.5); MEAN CORPUSCULAR HEMOGLOBIN 31.3 pg (27.0-33.0); MEAN CORPUSCULAR HGB CONC 34.4 g/dl (32.0-36.5); MEAN CORPUSCULAR VOLUME 90.9 fl (80.0-96.0); PLATELET COUNT, AUTOMATED 259 10^3/uL (150-450); RED BLOOD COUNT 4.73 10^6/uL (4.30-6.10); WHITE BLOOD COUNT 9.9 10^3/uL (4.0-10.0)
[2020-11-11 07:01] LABS: BLOOD UREA NITROGEN 5 MG/DL (7-18); CALCIUM LEVEL 8.6 MG/DL (8.8-10.2); CARBON DIOXIDE LEVEL 25 MEQ/L (21-32); CHLORIDE LEVEL 97 MEQ/L (98-107); CREATININE FOR GFR 0.67 MG/DL (0.70-1.30); GLOMERULAR FILTRATION RATE > 60.0 (>42); GLUCOSE, FASTING 129 MG/DL (70-100); POTASSIUM SERUM 3.6 MEQ/L (3.5-5.1); SODIUM LEVEL 131 MEQ/L (136-145)
[2020-11-11] MEDS: ENOXAPARIN 40MG/0.4ML SYRINGE (J1650 PER 10MG) SC SCH (08:33)
[2020-11-11] MEDS: MULTIVITAMINS/MINERALS THERAP 1 TAB PO SCH (08:34)
[2020-11-11] MEDS: FOLIC ACID 1 MG TAB PO SCH (08:34)
[2020-11-11] MEDS: LORazepam 2 MG/ML VIAL IV PRN (11:12)
--- NOTE | 2020-11-11 13:09 | IPN ---
PROGRESS NOTE DATE: 11/11/2020 SUBJECTIVE: Mr. Russell is seen this morning on his bedside. He is sedated and resting at present. Nursing staff reports that last night he was given Ativan and Haldol due to agitation. He is still n.p.o. as he failed his swallow evaluation again. Patient remains on I.V. fluid. PHYSICAL EXAMINATION: VITALS: Temperature 98.8 degrees Fahrenheit, heart rate 100 per minute, respiratory rate 18 per minute, blood pressure 154/74 mmHg, oxygen saturation 93% on room air. HEENT: Head is atraumatic. Patient is resting and he did not wake up on examining him. I did not specifically try to wake him up. His neck veins are not abnormally distended. LUNGS: Diminished breath sounds with poor inspiratory effort. HEART: Sounds are regular. ABDOMEN: Soft and nontender. Bowel sounds are normal. EXTREMITIES: Without any cyanosis or clubbing. LABORATORY STUDIES: Today's labs show WBC 9.9, hemoglobin 14.8, hematocrit 43.0. Sodium 131, potassium 3.6, chloride 97, CO2 25, BUN 5, creatinine 0.67, glucose 129 and calcium 8.6. PROBLEMS: 1. Hyponatremia: Sodium level is gradually improving and we will continue with half normal saline. He is still n.p.o. and not eating at all. 2. Hypokalemia: His potassium level is trending down and I will add 10 mEq potassium chloride in each liter of I.V. fluid. 3. Nutrition: Patient has been just getting I.V. fluid and has not received any nutrition since admission due to altered mentation and inability to swallow. I am deferring it to hospitalist service to either consider a nasogastric tube placement or a central line placement for TPN.
[2020-11-11] MEDS: KCL 10MEQ IN D5/0.45NS 1000ML 1,000 ML IV SCH (13:22)
--- NOTE | 2020-11-11 17:01 | IPNPDOC ---
Subjective Date Seen The patient was seen on 11/11/20. Subjective Chief Complaint/HPI Mr. 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 Patient was seen this morning, and he was resting comfortably. He was seen again in the early afternoon. He was more awake and trying to pull out his IV. His last dose of lorazepam was at 11AM. He was confused and thought we were at his friend's house. We put the mitts on the patient to protect the line. I revisited him again later in the afternoon. We spoke. The last thing he remembers was tripping and falling on the ground. He was reasonable and was able to follow instruction. We were able to have speech therapy come see him. Recommended mechanical soft and thin liquids. The mitts were removed. Objective Physical Examination General Exam: Positive: Alert, Cooperative Eye Exam: Negative: Sclera icteric Chest Exam: Positive: Clear to auscultation Heart Exam: Positive: Rate Normal, Regular Rhythm Abdomen Exam: Positive: Normal bowel sounds, Soft; Negative: Tenderness Neuro Exam: Positive: Normal Speech Psych Exam: Negative: Memory Intact, Oriented x 3 Assessment /Plan Assessment Mr. Russell is a 75 year old male with NIDDM, hypertension, and alcohol use disorder who presents from [facility] for AMS and hyponatremia. Alcohol use and HCTZ most likely contributed to patient's hyponatremia. Nephrology consulted for hyponatremia, recommendations appreciated. Otherwise, unclear etiology to patient's AMS. Ammonia negative, pCO2 on ABG within normal, UA not suggestive of UTI, no fever or significant leukocytosis to suggest infection, renal function and BUN at baseline, calcium not elevated. Considering Wernicke's encephalopathy as a possible cause, thus will increase thiamine dosage and frequency. Hyponatremia is also a possible cause. Attempted MRI, but patient too combative. Today on 11/11/20, patient was more alert in the afternoon. He thought he was at home, but we were able to reorient him. His memory is not the best. The last thing he remembers was tripping at home and falling on the ground. Speech therapy saw patient and recommended mechanical soft diet and thin liquids Plan/VTE VTE Prophylaxis Ordered?: Yes Plan 1. Hyponatremia Possibly caused by HCTZ and beers potomania Nephrology consulted, recommendations appreciated -Much improved 2. Toxic metabolic encephalopathy -Unclear etiology -Ammonia negative, pCO2 on ABG within normal, UA not suggestive of UTI, no fever or significant leukocytosis to suggest infection, renal function and BUN at baseline, calcium not elevated, Utox only positive for benzodiazepine which he is receiving. -Wernicke encephalopathy is a possibility, increased thiamine dosage and frequency -Possibly related to alcoholism, CIWA still elevated -Improving, patient following commands and now has a diet ordered (mechanical soft with thin liquids) 3. Hypoxemia Resolved, patient now on room air 4. Izq-lezwuae-mhndczysu diabetes mellitus Hold Metformin -Sliding scale insulin and hypoglycemic protocol 5. Essential hypertension HCTZ and losartan on hold due to hyponatremia As needed IV hydralazine instead -Added on amlodipine 6. Alcohol use disorder Thiamine changed to IV CIWA protocol 7. DVT prophylaxis Lovenox Disposition: Pending improvement in mental status. PT/OT ordered VS, I&O, 24H, Fishbone Vital Signs/I&O Vital Signs Date Time Temp Pulse Resp B/P (MAP) Pulse Ox O2 Delivery O2 Flow Rate FiO2 11/11/20 16:00 98.0 106 14 159/72 (101) 95 Room Air 11/08/20 09:00 2.0 I&O- Last 24 Hours up to 6 AM 11/11/20 06:00 Intake Total 1955 ml Output Total 1355 ml Balance 600 ml Laboratory Data 24H LABS Laboratory Tests 2 11/10/20 18:23: Bedside Glucose (Misc Panel) 150H 11/11/20 00:09: Bedside Glucose (Misc Panel) 136H 11/11/20 06:09: Bedside Glucose (Misc Panel) 141H 11/11/20 06:20: Nucleated Red Blood Cells % (auto) 0.0, Anion Gap 9, Glomerular Filtration Rate > 60.0, Calcium Level 8.6L CBC/BMP Laboratory Tests 11/11/20 06:20 OSVALDO VARGAS DO Nov 11, 2020 17:01
[2020-11-11] MEDS: amLODIPine 5 MG TAB PO SCH (17:47)
[2020-11-11 18:50] LABS: BLOOD UREA NITROGEN 5 MG/DL (7-18); CALCIUM LEVEL 8.7 MG/DL (8.8-10.2); CARBON DIOXIDE LEVEL 25 MEQ/L (21-32); CHLORIDE LEVEL 99 MEQ/L (98-107); GLOMERULAR FILTRATION RATE > 60.0 (>42); GLUCOSE, FASTING 150 MG/DL (70-100); POTASSIUM SERUM 3.4 MEQ/L (3.5-5.1); SODIUM LEVEL 131 MEQ/L (136-145)
[2020-11-12] VITALS (17 sets, daily range): BP systolic 138–192; BP diastolic 65–92
[2020-11-12] MEDS: hydrALAZINE 20MG/ML 1ML VIAL (J0360 PER 20MG) IV PRN ×2 (00:15→04:38)
[2020-11-12] MEDS: THIAMINE INJection 500 MG in NS 100 ML IV SCH ×3 (00:32→16:07)
[2020-11-12] MEDS: KCL 10MEQ IN D5/0.45NS 1000ML 1,000 ML IV SCH (03:06)
[2020-11-12 04:13] LABS: BASO # 0.1 10^3/uL (0.0-0.2); BASO % 0.7 % (0.0-1.0); EOS # 0.1 10^3/uL (0.0-0.5); EOS % 1.8 % (0.0-3.0); HEMATOCRIT 41.3 % (42.0-52.0); HEMOGLOBIN 14.2 g/dl (13.5-17.5); LYMPH # 0.7 10^3/uL (1.5-5.0); LYMPH % 9.8 % (24.0-44.0); MEAN CORPUSCULAR HEMOGLOBIN 31.1 pg (27.0-33.0); MEAN CORPUSCULAR HGB CONC 34.4 g/dl (32.0-36.5); MEAN CORPUSCULAR VOLUME 90.6 fl (80.0-96.0); MONO # 1.1 10^3/uL (0.0-0.8); MONO % 13.9 % (2.0-8.0); NEUTROPHILS # 5.6 10^3/uL (1.5-8.5); NEUTROPHILS % 73.5 % (36.0-66.0); PLATELET COUNT, AUTOMATED 275 10^3/uL (150-450); RED BLOOD COUNT 4.56 10^6/uL (4.30-6.10); WHITE BLOOD COUNT 7.6 10^3/uL (4.0-10.0)
[2020-11-12 04:32] LABS: BLOOD UREA NITROGEN 4 MG/DL (7-18); CALCIUM LEVEL 8.5 MG/DL (8.8-10.2); CARBON DIOXIDE LEVEL 27 MEQ/L (21-32); CHLORIDE LEVEL 100 MEQ/L (98-107); CREATININE FOR GFR 0.66 MG/DL (0.70-1.30); GLOMERULAR FILTRATION RATE > 60.0 (>42); GLUCOSE, FASTING 128 MG/DL (70-100); POTASSIUM SERUM 3.4 MEQ/L (3.5-5.1); SODIUM LEVEL 132 MEQ/L (136-145)
[2020-11-12 05:22] LABS: MAGNESIUM LEVEL 1.5 MG/DL (1.8-2.4)
[2020-11-12] MEDS: SODIUM CHLORIDE 0.9% INJ 10 ML SYR IV SCH (05:33)
[2020-11-12] MEDS: HumaLOG INSULIN (NovoLOG) PER UNIT SC SCH ×3 (05:38→17:09)
[2020-11-12] MEDS ORDERED: POTASSIUM CHLORIDE 10 MEQ SR TABLET PO ONE (06:00)
[2020-11-12] MEDS ORDERED: POTASSIUM CHLORIDE 10% LIQ 20 MEQ/15 ML UDC PO ONE (06:00)
[2020-11-12] MEDS: MAG SULF 1GM/100ML (MAG RUN) 1 GM in IV 1 EA IV SCH ×4 (07:44→11:24)
[2020-11-12] MEDS: MULTIVITAMINS/MINERALS THERAP 1 TAB PO SCH (08:11)
[2020-11-12] MEDS: amLODIPine 5 MG TAB PO SCH (08:11)
[2020-11-12] MEDS: ENOXAPARIN 40MG/0.4ML SYRINGE (J1650 PER 10MG) SC SCH (08:11)
[2020-11-12] MEDS: FOLIC ACID 1 MG TAB PO SCH (08:12)
[2020-11-12] MEDS: KCL 20MEQ IN D5/0.45NS 1000ML 1,000 ML IV SCH ×2 (09:04→21:13)
--- NOTE | 2020-11-12 10:04 | IPNPDOC ---
Subjective Date Seen The patient was seen on 11/12/20. Subjective Chief Complaint/HPI Mr. Russell is a 75 year old male with NIDDM, hypertension, and alcohol use disorder who presents from [facility] for AMS and hypon atremia. He did not need any lorazepam overnight. He was seen this morning working on breakfast. It looks like he spilt a lot of it on his clothes. He is more appropriate, but has some confusion. Denies chest pain or dyspnea. Objective Physical Examination General Exam: Positive: Alert, Cooperative Eye Exam: Negative: Sclera icteric Chest Exam: Positive: Clear to auscultation Heart Exam: Positive: Tachycardic, Regular Rhythm Abdomen Exam: Positive: Normal bowel sounds, Soft; Negative: Tenderness Neuro Exam: Positive: Normal Speech Psych Exam: Negative: Memory Intact, Oriented x 3 Assessment /Plan Assessment Mr. Russell is a 75 year old male with NIDDM, hypertension, and alcohol use disorder who presents from [facility] for AMS and hyponatremia. Alcohol use and HCTZ most likely contributed to patient's hyponatremia. Nephrology consulted for hyponatremia, recommendations appreciated. Otherwise, unclear etiology to patient's AMS. Ammonia negative, pCO2 on ABG within normal, UA not suggestive of UTI, no fever or significant leukocytosis to suggest infection, renal function and BUN at baseline, calcium not elevated. Considering Wernicke's encephalopathy as a possible cause, thus will increase thiamine dosage and frequency. Alcohol withdrawal and hyponatremia is also a possible cause. Today on 11/11/20, patient was more alert in the afternoon. He thought he was at home, but we were able to reorient him. His memory is not the best. The last thing he remembers was tripping at home and falling on the ground. Speech therapy saw patient and recommended mechanical soft diet and thin liquids Plan/VTE VTE Prophylaxis Ordered?: Yes Plan 1. Hyponatremia Possibly caused by HCTZ and beers potomania Nephrology consulted, recommendations appreciated -Much improved 2. Toxic metabolic encephalopathy -Unclear etiology -Ammonia negative, pCO2 on ABG within normal, UA not suggestive of UTI, no fever or significant leukocytosis to suggest infection, renal function and BUN at baseline, calcium not elevated, Utox only positive for benzodiazepine which he is receiving. -Wernicke encephalopathy is a possibility, increased thiamine dosage and frequency -Also may be due to alcohol withdrawal -Improving, patient following commands and now has a diet ordered (mechanical soft with thin liquids) 3. Hypoxemia Encourage incentive spirometer 4. Zqy-qlbrcsa-fctweraeg diabetes mellitus Hold Metformin -Sliding scale insulin and hypoglycemic protocol 5. Essential hypertension HCTZ and losartan on hold due to hyponatremia As needed IV hydralazine instead -Added on amlodipine 6. Alcohol use disorder Thiamine changed to IV CIWA protocol 7. DVT prophylaxis Lovenox Disposition: Pending improvement in mental status. PT/OT ordered VS, I&O, 24H, Fishbone Vital Signs/I&O Vital Signs Date Time Temp Pulse Resp B/P (MAP) Pulse Ox O2 Delivery O2 Flow Rate FiO2 11/12/20 09:00 95 14 94 Room Air 11/12/20 08:11 151/71 11/12/20 08:00 2.0 11/12/20 07:55 98.5 I&O- Last 24 Hours up to 6 AM 11/12/20 05:59 Intake Total 2020 ml Output Total 150 ml Balance 1870 ml Laboratory Data 24H LABS Laboratory Tests 2 11/11/20 17:01: Bedside Glucose (Misc Panel) 133H 11/11/20 18:06: Anion Gap 7L, Glomerular Filtration Rate > 60.0, Calcium Level 8.7L 11/11/20 23:41: Bedside Glucose (Misc Panel) 172H 11/12/20 03:55: Anion Gap 5L, Glomerular Filtration Rate > 60.0, Calcium Level 8.5L, Immature Granulocyte % (Auto) 0.3, Neutrophils (%) (Auto) 73.5H, Lymphocytes (%) (Auto) 9.8L, Monocytes (%) (Auto) 13.9H, Eosinophils (%) (Auto) 1.8, Basophils (%) (Auto) 0.7, Neutrophils # (Auto) 5.6, Lymphocytes # (Auto) 0.7L, Monocytes # (Auto) 1.1H, Eosinophils # (Auto) 0.1, Basophils # (Auto) 0.1, Nucleated Red Blood Cells % (auto) 0.0, Magnesium Level 1.5L 11/12/20 05:38: Bedside Glucose (Misc Panel) 123H CBC/BMP Laboratory Tests 11/11/20 18:06 11/12/20 03:55 OSVALDO VARGAS DO Nov 12, 2020 10:04
[2020-11-12] MEDS ORDERED: amLODIPine 5 MG TAB PO ONE (10:05)
[2020-11-12 16:55] LABS: BLOOD UREA NITROGEN 4 MG/DL (7-18); CALCIUM LEVEL 8.6 MG/DL (8.8-10.2); CARBON DIOXIDE LEVEL 25 MEQ/L (21-32); CHLORIDE LEVEL 102 MEQ/L (98-107); CREATININE FOR GFR 0.76 MG/DL (0.70-1.30); GLOMERULAR FILTRATION RATE > 60.0 (>42); GLUCOSE, FASTING 103 MG/DL (70-100); MAGNESIUM LEVEL 2.3 MG/DL (1.8-2.4); SODIUM LEVEL 133 MEQ/L (136-145)
--- NOTE | 2020-11-12 17:57 | IPN ---
NEPHROLOGY PROGRESS NOTE DATE: 11/12/2020 SUBJECTIVE: Mr. Russell is seen this morning on his bedside. He is much more alert and talking this morning. So far, he has been quite agitated or sedated as a result of agitation, but today he seems to be much more alert and having normal conversation. Nursing staff reports that he did eat a few bites of his breakfast. PHYSICAL EXAMINATION: VITAL SIGNS: Temperature 98.5 degrees Fahrenheit, heart rate 88 per minute, respiratory rate 16 per minute, blood pressure 154/92 mmHg, oxygen saturation 95% on room air. HEAD: Atraumatic. NECK: Supple and without jugular venous distention (JVD) or thyroid enlargement. HEART SOUNDS: Regular. LUNGS: Clear to auscultation. ABDOMEN: Soft and nontender. Bowel sounds are normal. EXTREMITIES: Without any cyanosis or clubbing. NEUROLOGIC: He is much more alert and able to have a normal conversation. LABORATORY REVIEW: Today's labs show WBC 7.6, hemoglobin 14.2, hematocrit 41.3. Sodium 132, potassium 3.4, BUN 4, creatinine 0.66, calcium 8.5, magnesium 1.5. PROBLEMS: 1. Hyponatremia. Patient was admitted with severe hyponatremia and his sodium level has gradually improved up to 132 today. He remains on half-normal saline for intravenous (IV) fluids. He is currently not on any diuretic. I will leave him on the same IV fluid for now and consider to stop it once his oral intake improves. He was nothing by mouth (NPO) up until today due to altered mentation. 2. Hypokalemia. Currently, he is receiving 10 mEq potassium chloride in IV fluid and I am going to switch it to 20 mEq in each liter. He has also started to eat now, which will help to correct his hypokalemia. 3. Hypomagnesemia. This is also nutritional and patient is already receiving intravenous magnesium sulfate. 4. Altered mentation. This was all toxic metabolic encephalopathy and this has improved significantly. I do not feel that hyponatremia had any role in his altered mentation.
[2020-11-12] MEDS: diphenhydrAMINE 50MG/ML VIAL (J1200) IM PRN (20:20)
--- NOTE | 2020-11-12 22:21 | IPNPDOC ---
Subjective Date Seen The patient was seen on 11/12/20. Subjective Chief Complaint/HPI Mr. Russell had a mechanical fall around 9:40AM. He said that he had an accident. It was noted that he hit his right butt cheek with the fall, and did not hit any other body parts. He denies fall tonight, said that he is feeling fine without pain in back or buttock and does not want to get any CT scans done. General: Reports: Other Symptoms (Limited review of system was able to be obtained as patient was intermittently agitated) Constitutional: Denies: Weakness ENT: Denies: Head Aches Musculoskeletal: Reports: Other Symptoms (denies buttock pain); Denies: Back Pain Neurological: Denies: Weakness, Numbness, Incoordination Objective Physical Examination General Exam: Positive: Alert, Cooperative, No Acute Distress Eye Exam: Positive: PERRLA, EOMI ENT Exam: Positive: Atraumatic, Mucous membr. moist/pink Neck Exam: Positive: Supple Chest Exam: Positive: Clear to auscultation, Normal air movement; Negative: Rales, Rhonchi, Wheezing Heart Exam: Positive: Rate Normal, Regular Rhythm; Negative: Murmurs Abdomen Exam: Negative: Tenderness Extremity Exam: Negative: Edema Skin Exam: Positive: Lesion (lesion in right lower back covered with dressing appears to be old healing wound) Neuro Exam: Positive: Normal Speech, Strength at 5/5 X4 ext, Normal Tone, Sensation Intact, Cranial Nerves 3-12 NL Psych Exam: Positive: Other (able to answer questions in complete sentences. Mood intermittently agitated) Other physical findings Gait roughly normal Assessment /Plan Assessment 1. Mechanical fall -sitter ordered -fall precaution -CT pelvis and lumbar was ordered. Patient refused CT scan, stated that he feels fine -bed rest Plan/VTE VTE Prophylaxis Ordered?: Yes VS, I&O, 24H, Fishbone Vital Signs/I&O Vital Signs Date Time Temp Pulse Resp B/P (MAP) Pulse Ox O2 Delivery O2 Flow Rate FiO2 11/12/20 20:00 97.7 96 14 157/74 (101) 96 Room Air 11/12/20 08:00 2.0 I&O- Last 24 Hours up to 6 AM 11/12/20 06:00 Intake Total 2080 ml Output Total 150 ml Balance 1930 ml Laboratory Data 24H LABS Laboratory Tests 2 11/11/20 23:41: Bedside Glucose (Misc Panel) 172H 11/12/20 03:55: Immature Granulocyte % (Auto) 0.3, Neutrophils (%) (Auto) 73.5H, Lymphocytes (%) (Auto) 9.8L, Monocytes (%) (Auto) 13.9H, Eosinophils (%) (Auto) 1.8, Basophils (%) (Auto) 0.7, Neutrophils # (Auto) 5.6, Lymphocytes # (Auto) 0.7L, Monocytes # (Auto) 1.1H, Eosinophils # (Auto) 0.1, Basophils # (Auto) 0.1, Nucleated Red Blood Cells % (auto) 0.0, Anion Gap 5L, Glomerular Filtration Rate > 60.0, Calcium Level 8.5L, Magnesium Level 1.5L 11/12/20 05:38: Bedside Glucose (Misc Panel) 123H 11/12/20 11:26: Bedside Glucose (Misc Panel) 142H 11/12/20 16:22: Anion Gap 6L, Glomerular Filtration Rate > 60.0, Calcium Level 8.6L, Magnesium Level 2.3 CBC/BMP Laboratory Tests 11/12/20 03:55 11/12/20 16:22 GME ATTESTATION GME ATTESTATION My faculty preceptor for this patient encounter was physically present during the encounter and was fully available. All aspects of the patient interview, examination, medical decision making process, and medical care plan development were reviewed and approved by the faculty preceptor. The faculty preceptor is aware and concurs with the plan as stated in the body of this note and will attest to such by his/her cosignature. HERMES FITCH DO Nov 12, 2020 22:21
[2020-11-12] MEDS: LORazepam 2 MG/ML VIAL IV PRN (22:28)
[2020-11-12] MEDS: HALOPERIDOL 5MG/ML VIAL (J1630 PER 1) IM PRN (23:44)
[2020-11-13] VITALS (9 sets, daily range): BP systolic 130–188; BP diastolic 65–92
[2020-11-13] MEDS ORDERED: LORazepam 2 MG/ML VIAL IM STA (00:05)
[2020-11-13] MEDS ORDERED: LORazepam 2 MG/ML VIAL IV STA (00:06)
[2020-11-13] MEDS: THIAMINE INJection 500 MG in NS 100 ML IV SCH ×3 (00:28→17:26)
[2020-11-13 05:01] LABS: BLOOD UREA NITROGEN 3 MG/DL (7-18); CALCIUM LEVEL 8.1 MG/DL (8.8-10.2); CARBON DIOXIDE LEVEL 23 MEQ/L (21-32); CHLORIDE LEVEL 104 MEQ/L (98-107); GLOMERULAR FILTRATION RATE > 60.0 (>42); GLUCOSE, FASTING 125 MG/DL (70-100); POTASSIUM SERUM 4.3 MEQ/L (3.5-5.1); SODIUM LEVEL 133 MEQ/L (136-145)
[2020-11-13 05:38] LABS: HEMOGLOBIN 14.2 g/dl (13.5-17.5); MEAN CORPUSCULAR HEMOGLOBIN 31.2 pg (27.0-33.0); MEAN CORPUSCULAR HGB CONC 33.8 g/dl (32.0-36.5); MEAN CORPUSCULAR VOLUME 92.3 fl (80.0-96.0); PLATELET COUNT, AUTOMATED 301 10^3/uL (150-450); RED BLOOD COUNT 4.55 10^6/uL (4.30-6.10); WHITE BLOOD COUNT 7.6 10^3/uL (4.0-10.0)
[2020-11-13] MEDS: HumaLOG INSULIN (NovoLOG) PER UNIT SC SCH ×5 (05:42→23:59)
[2020-11-13] MEDS: SODIUM CHLORIDE 0.9% INJ 10 ML SYR IV SCH (05:43)
[2020-11-13] MEDS: KCL 20MEQ IN D5/0.45NS 1000ML 1,000 ML IV SCH (09:05)
[2020-11-13] MEDS: ENOXAPARIN 40MG/0.4ML SYRINGE (J1650 PER 10MG) SC SCH (09:06)
--- NOTE | 2020-11-13 09:16 | IPNPDOC ---
Subjective Date Seen The patient was seen on 11/13/20. Subjective Chief Complaint/HPI Mr. Russell is a 75 year old male with NIDDM, hypertension, and alcohol use disorder who presents from [facility] for AMS and hyp onatremia. Last night, had a fall unto his right butt cheek. He did not hit his head. He felt fine and refused CT scans. Otherwise, this morning, he was pleasant, and he felt well. Denies chest pain or dyspnea. Still confused. [place] thought we were [place] of [place]. He did not believe we were in [facility] in [place], [place]. He thought the year was 2001. Objective Physical Examination General Exam: Positive: Alert, Cooperative Eye Exam: Positive: PERRLA, EOMI ENT Exam: Positive: Atraumatic Neck Exam: Positive: Supple Chest Exam: Positive: Clear to auscultation; Negative: Rales, Rhonchi, Wheezing Heart Exam: Positive: Rate Normal, Regular Rhythm Abdomen Exam: Positive: Normal bowel sounds, Soft; Negative: Tenderness Assessment /Plan Assessment Mr. Russell is a 75 year old male with NIDDM, hypertension, and alcohol use disorder who presents from [facility] for AMS and hyponatremia. Alcohol use and HCTZ most likely contributed to patient's hypo natremia. Nephrology consulted for hyponatremia, recommendations appreciated. Otherwise, unclear etiology to patient's AMS. Ammonia negative, pCO2 on ABG within normal, UA not suggestive of UTI, no fever or significant leukocytosis to suggest infection, renal function and BUN at baseline, calcium not elevated. Considering Wernicke's encephalopathy as a possible cause, thus will increase thiamine dosage and frequency. Alcohol withdrawal and hyponatremia is also a possible cause. Today on 11/11/20, patient was more alert in the afternoon. He thought he was at home, but we were able to reorient him. His memory is not the best. The last thing he remembers was tripping at home and falling on the ground. Speech therapy saw patient and recommended mechanical soft diet and thin liquids. Patient still has confusion and intermittent agitation. Will continue with IV thiamine Plan/VTE VTE Prophylaxis Ordered?: Yes Plan 1. Hyponatremia Possibly caused by HCTZ and beers potomania Nephrology consulted, recommendations appreciated -Much improved 2. Toxic metabolic encephalopathy -Unclear etiology -Ammonia negative, pCO2 on ABG within normal, UA not suggestive of UTI, no fever or significant leukocytosis to suggest infection, renal function and BUN at baseline, calcium not elevated, Utox only positive for benzodiazepine which he is receiving. -Wernicke encephalopathy is a possibility, increased thiamine dosage and frequency -Also may be due to alcohol withdrawal -Improving, patient following commands and now has a diet ordered (mechanical soft with thin liquids) 3. Hypoxemia Encourage incentive spirometer 4. Exp-bpxlqod-zgkswxnkw diabetes mellitus Hold Metformin -Sliding scale insulin and hypoglycemic protocol 5. Essential hypertension HCTZ and losartan on hold due to hyponatremia As needed IV hydralazine instead -Added on amlodipine 6. Alcohol use disorder Thiamine changed to IV CIWA protocol 7. DVT prophylaxis Lovenox Disposition: Pending improvement in mental status, continuing with high dose and frequency thiamine VS, I&O, 24H, [place] Vital Signs/I&O Vital Signs Date Time Temp Pulse Resp B/P (MAP) Pulse Ox O2 Delivery O2 Flow Rate FiO2 11/13/20 07:40 98.0 99 16 165/78 (107) 98 Nasal Cannula 2.0 I&O- Last 24 Hours up to 6 AM 11/13/20 06:00 Intake Total 3520 ml Output Total 1050 ml Balance 2470 ml Laboratory Data 24H LABS Laboratory Tests 2 11/12/20 11:26: Bedside Glucose (Misc Panel) 142H 11/12/20 16:22: Anion Gap 6L, Glomerular Filtration Rate > 60.0, Calcium Level 8.6L, Magnesium Level 2.3 11/12/20 23:47: Bedside Glucose (Misc Panel) 141H 11/13/20 04:32: Anion Gap 6L, Glomerular Filtration Rate > 60.0, Calcium Level 8.1L 11/13/20 05:27: Nucleated Red Blood Cells % (auto) 0.0 CBC/BMP Laboratory Tests 11/12/20 16:22 11/13/20 04:32 11/13/20 05:27 OSVALDO VARGAS DO Nov 13, 2020 09:16
[2020-11-13] MEDS: LORazepam 2 MG/ML VIAL IV PRN ×2 (10:57→20:27)
[2020-11-13] MEDS: FOLIC ACID 1 MG TAB PO SCH (10:57)
[2020-11-13] MEDS: MULTIVITAMINS/MINERALS THERAP 1 TAB PO SCH (10:57)
[2020-11-13] MEDS: KCL 10MEQ IN D5/0.45NS 1000ML 1,000 ML IV SCH (13:31)
[2020-11-13] MEDS: hydrALAZINE 20MG/ML 1ML VIAL (J0360 PER 20MG) IV PRN (13:31)
[2020-11-13] MEDS: CARVedilol 6.25 MG TAB PO SCH ×2 (15:24→20:19)
[2020-11-13] MEDS: SODIUM CHLORIDE 0.9% INJ 10 ML SYR IV PRN (20:30)
--- NOTE | 2020-11-13 20:34 | IPN ---
PROGRESS NOTE DATE: 11/13/2020 Mr. Russell is seen this afternoon on his bedside. Yesterday, he was much more alert and talking normal. Today, he seemed somewhat confused and disoriented again. He has a sitter present in the room. Patient is not able to tell me the place or day. Sitter reports that he has been trying to get out of bed. On physical exam, temperature 97.5 degrees Fahrenheit, heart rate 93 per minute, and respiratory rate 17 per minute. Blood pressure 172/80 mmHg and oxygen saturation 100% on 2 liters oxygen. Head is atraumatic. Neck supple and without jugular venous distention (JVD). Lungs sound clear to auscultation and heart sounds are regular. Abdomen is soft and nontender. Extremities without any cyanosis or clubbing. Neurologically he is confused and disoriented. Today's labs show sodium 133, potassium 4.3, CO2 23, BUN 3, and creatinine 0.6. PROBLEMS: 1. Hyponatremia. Sodium level has improved and stabilized. He remains on half-normal saline intravenously. His oral intake is still poor. I will continue with IV fluid until his oral intake improves. 2. Nutrition. He is not eating much so we will continue with dextrose 5% (D5) and half-normal saline at present. Once his oral intake is adequate, then we can stop the IV fluid and monitor. 3. Altered mentation. Most likely this is related to his toxic and metabolic encephalopathy.
[2020-11-14] VITALS (9 sets, daily range): BP systolic 122–168; BP diastolic 56–85
[2020-11-14] MEDS: KCL 10MEQ IN D5/0.45NS 1000ML 1,000 ML IV SCH
[2020-11-14] MEDS: THIAMINE INJection 500 MG in NS 100 ML IV SCH ×3 (00:22→17:46)
[2020-11-14] MEDS: LORazepam 2 MG/ML VIAL IV PRN ×2 (00:22→04:42)
[2020-11-14] MEDS: SODIUM CHLORIDE 0.9% INJ 10 ML SYR IV PRN (01:11)
[2020-11-14 04:30] LABS: HEMATOCRIT 44.1 % (42.0-52.0); HEMOGLOBIN 14.6 g/dl (13.5-17.5); MEAN CORPUSCULAR HEMOGLOBIN 30.6 pg (27.0-33.0); MEAN CORPUSCULAR HGB CONC 33.1 g/dl (32.0-36.5); MEAN CORPUSCULAR VOLUME 92.5 fl (80.0-96.0); PLATELET COUNT, AUTOMATED 327 10^3/uL (150-450); RED BLOOD COUNT 4.77 10^6/uL (4.30-6.10); WHITE BLOOD COUNT 6.8 10^3/uL (4.0-10.0)
[2020-11-14] MEDS: SODIUM CHLORIDE 0.9% INJ 10 ML SYR IV SCH (04:32)
[2020-11-14] MEDS: hydrALAZINE 20MG/ML 1ML VIAL (J0360 PER 20MG) IV PRN (04:32)
[2020-11-14 04:51] LABS: BLOOD UREA NITROGEN 5 MG/DL (7-18); CALCIUM LEVEL 8.8 MG/DL (8.8-10.2); CARBON DIOXIDE LEVEL 26 MEQ/L (21-32); CHLORIDE LEVEL 99 MEQ/L (98-107); CREATININE FOR GFR 0.75 MG/DL (0.70-1.30); GLOMERULAR FILTRATION RATE > 60.0 (>42); GLUCOSE, FASTING 123 MG/DL (70-100); POTASSIUM SERUM 3.9 MEQ/L (3.5-5.1); SODIUM LEVEL 130 MEQ/L (136-145)
[2020-11-14] MEDS: HumaLOG INSULIN (NovoLOG) PER UNIT SC SCH ×4 (06:00→20:35)
[2020-11-14] MEDS: ENOXAPARIN 40MG/0.4ML SYRINGE (J1650 PER 10MG) SC SCH (08:50)
[2020-11-14] MEDS: MULTIVITAMINS/MINERALS THERAP 1 TAB PO SCH (08:51)
[2020-11-14] MEDS: CARVedilol 6.25 MG TAB PO SCH ×2 (08:51→20:38)
[2020-11-14] MEDS: FOLIC ACID 1 MG TAB PO SCH (08:51)
[2020-11-14] MEDS: D5W/0.9% SODIUM CHLORIDE 1,000 ML IV SCH ×2 (10:57→23:50)
--- NOTE | 2020-11-14 12:49 | IPNPDOC ---
Subjective Date Seen The patient was seen on 11/14/20. Subjective Chief Complaint/HPI Mr. Russell is a 75 year old male with NIDDM, hypertension, and alcohol use disorder who presents from [facility] for AMS and hyp onatremia. This morning, he was agitated and was given Ativan. When I saw him, he was fast asleep. Still on IVF since his oral intake was poor. Started patient on Glucerna shakes. Objective Physical Examination Eye Exam: Positive: PERRLA, EOMI ENT Exam: Positive: Atraumatic Neck Exam: Positive: Supple Chest Exam: Positive: Clear to auscultation; Negative: Rales, Rhonchi, Wheezing Heart Exam: Positive: Rate Normal, Regular Rhythm Abdomen Exam: Positive: Normal bowel sounds, Soft; Negative: Tenderness Assessment /Plan Assessment Mr. Russell is a 75 year old male with NIDDM, hypertension, and alcohol use disorder who presents from [facility] for AMS and hyponatremia. Alcohol use and HCTZ most likely contributed to patient's hyponatremia. Nephrology consulted for hyponatremia, recommendations appreciated. Otherwise, unclear etiology to patient's AMS. Ammonia negative, pCO2 on ABG within normal, UA not suggestive of UTI, no fever or significant leukocytosis to suggest infection, renal function and BUN at baseline, calcium not elevated. Considering Wernicke's encephalopathy as a possible cause, thus will increase thiamine dosage and frequency. Alcohol withdrawal and hyponatremia is also a possible cause. Today on 11/11/20, patient was more alert in the afternoon. He thought he was at home, but we were able to reorient him. His memory is not the best. The last thing he remembers was tripping at home and falling on the ground. Speech therapy saw patient and recommended mechanical soft diet and thin liquids. Patient still has confusion and intermittent agitation. Will continue with IV thiamine Plan/VTE VTE Prophylaxis Ordered?: Yes Plan 1. Hyponatremia Possibly caused by HCTZ and beers potomania Nephrology consulted, recommendations appreciated -Much improved 2. Toxic metabolic encephalopathy -Unclear etiology -Ammonia negative, pCO2 on ABG within normal, UA not suggestive of UTI, no fever or significant leukocytosis to suggest infection, renal function and BUN at baseline, calcium not elevated, Utox only positive for benzodiazepine which he is receiving. -Wernicke encephalopathy is a possibility, increased thiamine dosage and frequency. Day 5 of high dose thiamine -Also may be due to alcohol withdrawal -Improving, patient following commands and now has a diet ordered (mechanical soft with thin liquids) 3. Hypoxemia Encourage incentive spirometer 4. Bop-yccyeao-sqlxtebin diabetes mellitus Hold Metformin -Sliding scale insulin and hypoglycemic protocol 5. Essential hypertension HCTZ and losartan on hold due to hyponatremia As needed IV hydralazine instead -On amlodipine and carvedilol 6. Alcohol use disorder Thiamine changed to IV CIWA protocol 7. DVT prophylaxis Lovenox Disposition: Pending improvement in mental status, continuing with high dose and frequency thiamine VS, I&O, 24H, Fishbone Vital Signs/I&O Vital Signs Date Time Temp Pulse Resp B/P (MAP) Pulse Ox O2 Delivery O2 Flow Rate FiO2 11/14/20 12:13 98.4 77 18 123/58 (79) 93 Room Air 11/14/20 04:00 2.0 I&O- Last 24 Hours up to 6 AM 11/14/20 06:00 Intake Total 580 ml Output Total 600 ml Balance -20 ml Laboratory Data 24H LABS Laboratory Tests 2 11/13/20 13:10: Bedside Glucose (Misc Panel) 128H 11/13/20 17:25: Bedside Glucose (Misc Panel) 169H 11/13/20 23:58: Bedside Glucose (Misc Panel) 119H 11/14/20 03:58: Nucleated Red Blood Cells % (auto) 0.0, Anion Gap 5L, Glomerular Filtration Rate > 60.0, Calcium Level 8.8 11/14/20 11:51: Bedside Glucose (Misc Panel) 125H CBC/BMP Laboratory Tests 11/14/20 03:58 OSVALDO VARGAS DO Nov 14, 2020 12:49
--- NOTE | 2020-11-14 13:06 | IPNPDOC ---
Text Note Date of Service The patient was seen on 11/14/20. NOTE S: Mr Russell was seen this morning sitting in a chair along his bedside. He st ates he is feeling much better. He is much more talkative and alert and was trying to really remember how he ended up in the hospital here. He could recollect some of the details of his hospital course however he does not remember most of it. He states he has not talked to his family until now and wanted to know when he can go home since he feels normal. Patient still has a sitter present in the room. Sitter reports no aggressive spells or attempts to leave on his own. The nurse reports no overnight events. OBJECTIVE: Patient seems much more alert oriented to time place and person since last time I saw him. VITALS: As below EXAMINATION: GENERAL appearance: Patient looks under no acute distress, build normal, sitting comfortably in a chair. HEENT: PERRLA, EOMI, moist mucous membranes, no scleral icterus or pallor CARDIOVASCULAR: Regular rate and rhythm, no murmurs rubs or gallops heard. LUNGS: Clear to auscultation bilaterally ABDOMEN: Nondistended, nontender, no organomegaly. NEUROLOGICAL: Patient seems alert oriented to time place and person. Patient is not agitated like previous examinations . Good motor strength 5/5, sensations intact. MUSCULOSKELETAL: Range of motion normal in all joints, no obvious deformity seen. PSYCHIATRY: Normal mood and affect. ASSESSMENT AND PLAN: #1 hyponatremia: Patient sodium level has been fluctuating staying between 133-130. Patient was previously on half-normal saline but since his serum sodium is going down again from 1 33-1 30 we will be changing his fluids to isotonic normal saline with D5. Patient is eating better and states that he is hungrier and had his breakfast, hopefully his sodium levels will get better with an improved nutritional status. Our suspicion of the cause of his hyponatremia remains unchanged. He continues to be off hydrochlorothiazide and has been thoroughly counseled on the deleterious effects of binge drinking. #2 altered mental status: This has since then resolved especially since his sodium levels have gone up. There was certainly a component of hyponatremia contributing to his altered mentation. Patient continues to be on IV thiamine given the history of his alcoholism. #3 essential hypertension: Patient's hydrochlorothiazide and losartan are held due to ongoing hyponatrem ia. Patient is on amlodipine and IV hydralazine as needed for blood pressure control. Blood pressure is remaining stable. VS,Fishbone, I+O VS, Fishbone, I+O Laboratory Tests 11/14/20 03:58 Vital Signs Date Time Temp Pulse Resp B/P (MAP) Pulse Ox O2 Delivery O2 Flow Rate FiO2 11/14/20 12:13 98.4 77 18 123/58 (79) 93 Room Air 11/14/20 04:00 2.0 I&O- Last 24 Hours up to 6 AM 11/14/20 06:00 Intake Total 580 ml Output Total 600 ml Balance -20 ml GME ATTESTATION GME ATTESTATION My faculty preceptor for this patient encounter was physically present during e encounter and was fully available. All aspects of the patient interview, examination, medical decision making process, and medical care plan development were reviewed and approved by the faculty preceptor. The faculty preceptor is aware and concurs with the plan as stated in the body of this note and will attest to such by his/her cosignature. Attending Note Attending Note Hyponatremia AMS sec to DTs Poor oral intake change IVF to D5NS. Etoh withdrawal precautions. Avoid thiazides in future. Sammie Moon MD Nov 14, 2020 12:30 JOSE D HANNAH MD Nov 15, 2020 18:28
[2020-11-15] VITALS (9 sets, daily range): BP systolic 123–144; BP diastolic 58–71
[2020-11-15] MEDS: THIAMINE INJection 500 MG in NS 100 ML IV SCH ×3 (01:35→19:02)
[2020-11-15 05:28] LABS: HEMATOCRIT 41.1 % (42.0-52.0); HEMOGLOBIN 13.8 g/dl (13.5-17.5); MEAN CORPUSCULAR HEMOGLOBIN 31.2 pg (27.0-33.0); MEAN CORPUSCULAR HGB CONC 33.6 g/dl (32.0-36.5); MEAN CORPUSCULAR VOLUME 92.8 fl (80.0-96.0); PLATELET COUNT, AUTOMATED 344 10^3/uL (150-450); RED BLOOD COUNT 4.43 10^6/uL (4.30-6.10)
[2020-11-15 05:51] LABS: BLOOD UREA NITROGEN 9 MG/DL (7-18); CALCIUM LEVEL 8.6 MG/DL (8.8-10.2); CARBON DIOXIDE LEVEL 24 MEQ/L (21-32); CHLORIDE LEVEL 101 MEQ/L (98-107); CREATININE FOR GFR 0.77 MG/DL (0.70-1.30); GLOMERULAR FILTRATION RATE > 60.0 (>42); GLUCOSE, FASTING 104 MG/DL (70-100); POTASSIUM SERUM 4.4 MEQ/L (3.5-5.1); SODIUM LEVEL 131 MEQ/L (136-145)
[2020-11-15] MEDS: SODIUM CHLORIDE 0.9% INJ 10 ML SYR IV SCH (05:59)
[2020-11-15] MEDS: HumaLOG INSULIN (NovoLOG) PER UNIT SC SCH ×4 (07:30→20:17)
[2020-11-15] MEDS: ENOXAPARIN 40MG/0.4ML SYRINGE (J1650 PER 10MG) SC SCH (08:55)
[2020-11-15] MEDS: CARVedilol 6.25 MG TAB PO SCH ×2 (08:56→20:14)
[2020-11-15] MEDS: FOLIC ACID 1 MG TAB PO SCH (08:56)
[2020-11-15] MEDS: MULTIVITAMINS/MINERALS THERAP 1 TAB PO SCH (08:56)
[2020-11-15] MEDS: SODIUM CHLORIDE 0.9% INJ 10 ML SYR IV PRN (10:29)
--- NOTE | 2020-11-15 12:08 | IPNPDOC ---
Subjective Date Seen The patient was seen on 11/15/20. Subjective Chief Complaint/HPI Patient was seen and examined at bedside this morning. He was admitted for hyponatremia as well as a change in mental status thought to be secondary to his alcohol use mainly. Today, he is awake and answering questions appropriately. He had no new complaints and was asking to go home. He was explained that we are monitoring his sodium at this time, as well as concerns for possible swallowing issues. He denied choking spells, chest pain, shortness of breath, dysphagia, odynophagia, abdominal pain, nausea, vomiting, chest pain, and prob lems with urination or bowel movements. Other systems 10 point review of system was negative except for what is noted in the HPI Objective Physical Examination Eye Exam: Positive: PERRLA, EOMI ENT Exam: Positive: Atraumatic Neck Exam: Positive: Supple Chest Exam: Positive: Clear to auscultation; Negative: Rales, Rhonchi, Wheezing Heart Exam: Positive: Rate Normal, Regular Rhythm Abdomen Exam: Positive: Normal bowel sounds, Soft; Negative: Tenderness Other physical findings General: Lying in bed, no acute distress Head/Neck/Throat: Trachea midline, mucous membranes moist Eyes: Sclera anicteric, PERRLA Thorax: Normal respiratory effort on room air, lungs clear to auscultation bilaterally, no wheezes/rales/rhonchi Cardiovascular: Normal rate, regular rhythm, normal S1, S2; no S3, S4, ru bs/gallops/murmurs Abdomen: Bowel sounds present, soft/nontender/nondistended Genitourinary: No CVA tenderness, no Elena in place Musculoskeletal: Moving all extremities, no edema Skin: Warm, dry Neurologic: Awake, alert, oriented x2 (did not know the year). He was able to tell me about his son's and where he lives. He is able to follow commands Assessment /Plan Assessment #Hyponatremia -Improving, today sodium is 131. It is possible this may have been due to his poor p.o. intake with the use of alcohol, with underlying use of hydrochlorothiazide. #Metabolic encephalopathy -Toxic metabolic encephalopathy secondary to his alcohol use. Continue with thi amine. #Mrp-yjcuutk-xvubyqqvg diabetes mellitus -Hold ambulatory oral diabetic medications. Continue with hypoglycemic protocol and sliding scale. #Essential hypertension -Holding hctz. Continue with amlodipine. #Alcohol abuse -Continue with thiamine. CIWA protocol. This morning it was 0. #DVT prophylaxis -Lovenox Plan/VTE VTE Prophylaxis Ordered?: Yes VS, I&O, 24H, Fishbone Vital Signs/I&O Vital Signs Date Time Temp Pulse Resp B/P (MAP) Pulse Ox O2 Delivery O2 Flow Rate FiO2 11/15/20 08:02 99.2 81 20 144/67 (92) 90 Room Air 11/14/20 04:00 2.0 I&O- Last 24 Hours up to 6 AM 11/15/20 05:59 Intake Total 1425 ml Output Total 0 ml Balance 1425 ml Laboratory Data 24H LABS Laboratory Tests 2 11/14/20 11:51: Bedside Glucose (Misc Panel) 125H 11/14/20 16:48: Bedside Glucose (Misc Panel) 123H 11/14/20 20:07: Bedside Glucose (Misc Panel) 120H 11/15/20 05:05: Nucleated Red Blood Cells % (auto) 0.0, Anion Gap 6L, Glomerular Filtration Rate > 60.0, Calcium Level 8.6L CBC/BMP Laboratory Tests 11/15/20 05:05 LIV SOLER M.D. Nov 15, 2020 08:48
--- NOTE | 2020-11-15 17:50 | IPNPDOC ---
Text Note Date of Service The patient was seen on 11/15/20. NOTE SUBJECTIVE: Patient was seen this morning by the nephrology team. He is sitting comfortably on a chair along his bedside. Patient reports feeling although more better since yesterday. He is alert oriented to time place and person. He did manage to talk to his family and is eager to get back to them. No overnight events as per the nurses. Patient still has a sitter present in the room. No more reports of aggressive spells. OBJECTIVE: Patient seems much more alert oriented to time place and person since last time I saw him. VITALS: As below EXAMINATION: GENERAL appearance: Patient looks under no acute distress, build normal, sitting comfortably in a chair. HEENT: PERRLA, EOMI, moist mucous membranes, no scleral icterus or pallor CARDIOVASCULAR: Regular rate and rhythm, no murmurs rubs or gallops heard. LUNGS: Clear to auscultation bilaterally ABDOMEN: Nondistended, nontender, no organomegaly. NEUROLOGICAL: Patient seems alert oriented to time place and person. Patient is not agitated like previous examinations . Good motor strength 5/5, sensations intact. MUSCULOSKELETAL: Range of motion normal in all joints, no obvious deformity seen. PSYCHIATRY: Normal mood and affect. EXTREMITY: Grade 2+ pedal edema, normal pulses. ASSESSMENT AND PLAN: 1.hyponatremia: Patient sodium levels have been staying stable. Patient reports eating better however still on soft mashed diet. Since the nutritional status is improving we will stop IV fluids today. Patient continues to be off hydrochlorothiazide-needs to see his PCP to reevaluate restarting hydrochlorothiazide for his hypertension. We would recommend changing his medications for managing high blood pressure Since the patient's electrolytes (sodium) has been stable and under control, we will be signing off this patient today. 2. Altered mental status: Patient is alert oriented x3. Most likely was altered due to hyponatremia. Problem since then resolved. 3. Essential hypertension: Patient's vitals have been stable with a good blood pressure control. Continue to hold hydrochlorothiazide with a recommendation to not restart it for blood pressure control. Patient continues to stay on amlodipine and IV hydralazine as needed for blood pressure control. VS,Fishbone, I+O VS, Fishbone, I+O Laboratory Tests 11/15/20 05:05 Vital Signs Date Time Temp Pulse Resp B/P (MAP) Pulse Ox O2 Delivery O2 Flow Rate FiO2 11/15/20 09:00 70 96/48 11/15/20 08:02 99.2 20 90 Room Air 11/14/20 04:00 2.0 I&O- Last 24 Hours up to 6 AM 11/15/20 06:00 Intake Total 1425 ml Output Total 300 ml Balance 1125 ml GME ATTESTATION GME ATTESTATION My faculty preceptor for this patient encounter was physically present during the encounter and was fully available. All aspects of the patient interview, examination, medical decision making process, and medical care plan development were reviewed and approved by the faculty preceptor. The faculty preceptor is aware and concurs with the plan as stated in the body of this note and will attest to such by his/her cosignature. Attending Note Attending Note Pt much more awake and alert. He ate his breakfast today. Hyponatremia HTN DTs cont Amlodipine. Stop IV fluids. Avoid use of Thiazide in future in the setting of Etoh Abuse and risk of hyponatremia. Nephrology is going to sign off. follow up Nephrology 2 week after DC. Sammie Moon MD Nov 15, 2020 11:57 JOSE D HANNAH MD Nov 15, 2020 18:31
[2020-11-16] VITALS (8 sets, daily range): BP systolic 107–162; BP diastolic 62–76
[2020-11-16] MEDS: THIAMINE INJection 500 MG in NS 100 ML IV SCH ×2 (01:37→10:35)
[2020-11-16 05:11] LABS: HEMATOCRIT 38.3 % (42.0-52.0); HEMOGLOBIN 12.7 g/dl (13.5-17.5); MEAN CORPUSCULAR HEMOGLOBIN 30.8 pg (27.0-33.0); MEAN CORPUSCULAR HGB CONC 33.2 g/dl (32.0-36.5); PLATELET COUNT, AUTOMATED 363 10^3/uL (150-450); RED BLOOD COUNT 4.12 10^6/uL (4.30-6.10); WHITE BLOOD COUNT 5.7 10^3/uL (4.0-10.0)
[2020-11-16] MEDS: SODIUM CHLORIDE 0.9% INJ 10 ML SYR IV SCH (05:13)
[2020-11-16 05:34] LABS: BLOOD UREA NITROGEN 11 MG/DL (7-18); CALCIUM LEVEL 8.6 MG/DL (8.8-10.2); CARBON DIOXIDE LEVEL 25 MEQ/L (21-32); CHLORIDE LEVEL 100 MEQ/L (98-107); CREATININE FOR GFR 0.96 MG/DL (0.70-1.30); GLOMERULAR FILTRATION RATE > 60.0 (>42); GLUCOSE, FASTING 120 MG/DL (70-100); MAGNESIUM LEVEL 1.8 MG/DL (1.8-2.4); PHOSPHORUS LEVEL 3.1 MG/DL (2.5-4.9); POTASSIUM SERUM 4.2 MEQ/L (3.5-5.1); SODIUM LEVEL 131 MEQ/L (136-145)
[2020-11-16] MEDS: HumaLOG INSULIN (NovoLOG) PER UNIT SC SCH ×4 (07:30→21:00)
[2020-11-16] MEDS: MULTIVITAMINS/MINERALS THERAP 1 TAB PO SCH (09:36)
[2020-11-16] MEDS: ENOXAPARIN 40MG/0.4ML SYRINGE (J1650 PER 10MG) SC SCH (09:36)
[2020-11-16] MEDS: CARVedilol 6.25 MG TAB PO SCH ×2 (09:37→22:23)
[2020-11-16] MEDS: FOLIC ACID 1 MG TAB PO SCH (09:37)
[2020-11-16] MEDS ORDERED: VARIBAR PUDDING 40% w/v 230ML TUBE As Ordered ONE (11:42)
[2020-11-16] MEDS ORDERED: VARIBAR NECTAR 40% w/v 240ML SUSP BTL As Ordered ONE (11:42)
[2020-11-16] MEDS ORDERED: E-Z-PAQUE 96% w/w SUSP 176GM BTL As Ordered ONE (11:42)
[2020-11-16] MEDS ORDERED: BARIUM SULFATE 700 MG TABLET (E-Z-DISK) As Ordered ONE (11:42)
[2020-11-16] MEDS ORDERED: MAGNESIUM OXIDE 400MG TAB (MAG-OX) PO ONE (14:00)
[2020-11-16] MEDS ORDERED: THIAMINE 100 MG TAB PO ONE (17:00)
--- NOTE | 2020-11-16 17:52 | REP ---
INDICATION: swallow assessment. COMPARISON: None. TECHNIQUE: The procedure was performed by AXEL Robles, under the direct supervision of Dr. Levi. The procedure was performed with Mansi Gonzalez from speech pathology present. 5 ml aliquots of thin, pudding, mixed fruit, soft food, and pill consistency barium was administered. FINDINGS: No aspiration or penetration was visualized during the exam. There is an incidental finding of a small Zenker's diverticulum. The detailed report of this examination will be provided by speech pathology. IMPRESSION: 1. Unremarkable cookie swallow, a detailed report will be provided by speech pathology. 2. An incidental finding of a small Zenker's diverticulum. 2.3 minutes of fluoroscopy time was utilized for this procedure. Some fluoroscopic images are performed with last image hold technology. These images require no additional radiation <Electronically signed by Emily Webb > 11/16/20 [id number] <Electronically signed by Neo Levi > 11/16/20 [id number]
[2020-11-16] MEDS: CYANOCOBALAMIN 500 MCG TAB PO SCH (19:55)
[2020-11-16] MEDS ORDERED: PROHANCE 279.3MG/ML 15ML VIAL As Ordered ONE (20:35)
--- NOTE | 2020-11-16 23:23 | REPVR ---
PROCEDURE INFORMATION: Exam: MR Head Without and With Contrast Exam date and time: 11/16/2020 8:57 PM Age: 75 years old Clinical indication: Pain; Headache not specified; Additional info: Encephlopathy TECHNIQUE: Imaging protocol: MR of the head without and with intravenous contrast. Contrast material: PROHANCE; Contrast volume: 13 ml; Contrast route: INTRAVENOUS (IV); COMPARISON: XA Cookie Swallow Mod.Ba Swallow 11/16/2020 1:24 PM FINDINGS: No abnormal diffusion restriction to indicate acute CVA. Midline structures and cerebellar tonsillar position appear normal. Ventricles, cisterns and sulci are symmetrically prominent. No intracranial mass, midline shift, or abnormal extra-axial fluid. No acute intracranial hemorrhage. Moderate pattern of increased T2 and flair signal in supratentorial and janie white matter. CP angle cisterns show normal CSF signal without effacement or mass. No abnormal parenchymal or meningeal enhancement with gadolinium. Vascular flow voids are preserved in vertebro-basilar and carotid vessels. Major dural venous sinuses appear patent. Paranasal sinuses and mastoid air cells are normally aerated. Ocular globes and orbits are unremarkable. No soft tissue abnormality or asymmetry in the posterior nasopharynx. IMPRESSION: No acute intracranial abnormality and no abnormal enhancing parenchymal or meningeal lesion Symmetric atrophy and chronic microangiopathic supratentorial and janie white matter changes Electronically signed by: Irving Hardin On 11/16/2020 23:23:07 PM
[2020-11-17] VITALS: BP 106/63
[2020-11-17 04:00] VITALS: BP 142/81
[2020-11-17] MEDS: SODIUM CHLORIDE 0.9% INJ 10 ML SYR IV SCH (05:41)
[2020-11-17] MEDS: HumaLOG INSULIN (NovoLOG) PER UNIT SC SCH ×4 (07:18→19:58)
[2020-11-17 08:00] VITALS: BP_SYST 141; BP_SYST 162; BP_DIAS 72; BP_DIAS 74
--- NOTE | 2020-11-17 08:17 | CR ---
CONSULTATION DATE: 11/16/2020 REFERRING PHYSICIAN: ___ REASON FOR CONSULTATION: Altered mental status. HISTORY OF PRESENT ILLNESS: The patient is a 75-year-old man who was admitted to [facility] due to altered mental status. The patient fell a week ago and hurt the left side of his chest. He went out to a bar to drink alcohol and was found confused. He was taken to [facility] where he became combative and was given Ativan. He was sent to [facility] for further evaluation. He was found to have hyponatremia which was slowly corrected. He was also treated for alcohol withdrawal and concern for Wernicke's encephalopathy. His sodium has been corrected and concern for alcohol withdrawal has declined but his mentation has not returned back to his normal and Neurology was consulted for further evaluation. The patient himself is unable to provide any meaningful history. He states that he came here a while ago but does not know why he came to this hospital. He was unable to tell me which hospital he is at currently. He denies any headaches, neck pain, back pain, dysphagia, dysarthria, diplopia, urinary incontinence. He wants to go home. PAST MEDICAL HISTORY: Diabetes, hypertension. HOME MEDICATIONS: 1. Aspirin 81 mg p.o. daily. 2. Vitamin D3 2000 units p.o. daily. 3. Folic acid 1 mg p.o. daily. 4. Hydrochlorothiazide 25 mg p.o. daily. 5. Losartan 100 mg p.o. 6. Metformin 500 mg p.o. b.i.d. ALLERGIES: None. REVIEW OF SYSTEMS: All systems are reviewed and found to be noncontributory except as mentioned in the history of present illness. SOCIAL HISTORY: Patient states that he drinks 2-5 beers a day. He quit smoking in 1991. FAMILY HISTORY: Noncontributory. PHYSICAL EXAMINATION: Temperature is 98.6, pulse is 60, respiratory rate is 18, blood pressure is 142/81, 96% saturation on room air. Heart: Regular rate and rhythm. Lungs are clear to auscultation. Abdomen is soft, nontender and nondistended. No pedal edema. No musculoskeletal abnormalities. No rash. No signs of meningeal irritation. Patient is awake, alert and oriented to self, city, state, country, name of President. He thinks it is November 2003. He is unable to tell me the day of the week. Speech is normal with normal comprehension and expression. He is unable to do serial 7's and is unable to spell the word world backwards. His recall is 0/3 at five minutes. Extraocular muscles are intact. No facial weakness. Tongue and uvula are midline. There is 5/5 strength in all extremities. Deep tendon reflexes are 1+ throughout. Normal sensation. DIAGNOSTIC STUDIES: MRI scan of the brain showed no acute disease. Small vessel ischemic disease of brain and atrophy. The amount of atrophy is moderately severe with proportionately enlarged ventricles. There is mild cerebellar atrophy as well. His vitamin B12 level is 301. His serum sodium was 120 and increased to 133 and currently is 131. Hemoglobin is 12.7 with normal platelet count and WBC. ASSESSMENT: 1. Alcoholism and related cerebral and cerebellar atrophy. 2. 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 3. Hyponatremia which has been slowly corrected. 4. Altered mental status related to above and alcohol withdrawal/concern for Wernicke's encephalopathy. PLAN: 1. Vitamin B12 1000 mcg p.o. daily and vitamin B1 100 mg p.o. daily. 2. He should quit drinking alcohol. 3. Donepezil 5 mg p.o. in the morning and watch for bradycardia. 4. Follow up with our office in two weeks after hospital discharge.
[2020-11-17] MEDS: MULTIVITAMINS/MINERALS THERAP 1 TAB PO SCH (08:48)
[2020-11-17] MEDS: CARVedilol 6.25 MG TAB PO SCH ×2 (08:48→20:06)
[2020-11-17] MEDS: CYANOCOBALAMIN 500 MCG TAB PO SCH (08:48)
[2020-11-17] MEDS: FOLIC ACID 1 MG TAB PO SCH (08:48)
[2020-11-17] MEDS: ENOXAPARIN 40MG/0.4ML SYRINGE (J1650 PER 10MG) SC SCH (08:49)
[2020-11-17 09:12] LABS: HEMATOCRIT 40.3 % (42.0-52.0); HEMOGLOBIN 13.4 g/dl (13.5-17.5); MEAN CORPUSCULAR HEMOGLOBIN 30.8 pg (27.0-33.0); MEAN CORPUSCULAR HGB CONC 33.3 g/dl (32.0-36.5); MEAN CORPUSCULAR VOLUME 92.6 fl (80.0-96.0); PLATELET COUNT, AUTOMATED 406 10^3/uL (150-450); RED BLOOD COUNT 4.35 10^6/uL (4.30-6.10); WHITE BLOOD COUNT 5.2 10^3/uL (4.0-10.0)
[2020-11-17 09:31] LABS: BLOOD UREA NITROGEN 7 MG/DL (7-18); CALCIUM LEVEL 8.7 MG/DL (8.8-10.2); CARBON DIOXIDE LEVEL 28 MEQ/L (21-32); CHLORIDE LEVEL 98 MEQ/L (98-107); CREATININE FOR GFR 0.79 MG/DL (0.70-1.30); GLOMERULAR FILTRATION RATE > 60.0 (>42); GLUCOSE, FASTING 112 MG/DL (70-100); MAGNESIUM LEVEL 1.8 MG/DL (1.8-2.4); PHOSPHORUS LEVEL 3.7 MG/DL (2.5-4.9); POTASSIUM SERUM 4.3 MEQ/L (3.5-5.1); SODIUM LEVEL 130 MEQ/L (136-145)
--- NOTE | 2020-11-17 10:49 | IPNPDOC ---
Subjective Date Seen The patient was seen on 11/16/20. Subjective Chief Complaint/HPI Patient was seen and examined at bedside this morning. He had no new complaints and was asking to go home. He denied headaches, chest pain, abdominal pain, nausea, vomiting, problem with urination or bowel movements. Overnight no acute events reported. Objective Physical Examination Other physical findings General: Lying in bed, no acute distress Head/Neck/Throat: Trachea midline, mucous membranes moist Eyes: Sclera anicteric, no erythema or discharge appreciated bilaterally Thorax: Normal respiratory effort on room air, lungs clear to auscultation bilaterally, no wheezes/rales/rhonchi Cardiovascular: Normal rate, regular rhythm, normal S1, S2; no S3, S4, rubs/gallops/murmurs Abdomen: Bowel sounds present, soft/nontender/nondistended Genitourinary: No CVA tenderness, no Elena in place Musculoskeletal: Moving all extremities, no edema Skin: Warm, dry Neurologic: Awake, alert, oriented x2 (did not know the year). At times he is forgetful but able to follow commands appropriately. Assessment /Plan Assessment #Hyponatremia -Improving, today sodium is 131. It is possible this may have been due to his poor p.o. intake with the use of alcohol, with underlying use of hydrochlorothiazide. #Metabolic encephalopathy -Toxic metabolic encephalopathy secondary to his alcohol use. Continue with thiamine. Suspect that this may just be is new baseline from his alcohol abuse. The family is concerned about him returning home and was requesting a sofía rological evaluation as well as social service consult. They were explained at length that this may be secondary to Warnicke's encephalopathy. Neurology was consulted and will be seeing the patient as well recommended MRI of the brain. -We will continue with B12, and B1 supplementation #Bjf-[id number]-qqzmjsjls diabetes mellitus -Hold ambulatory oral diabetic medications. Continue with hypoglycemic protocol and sliding scale. #Essential hypertension -Holding hctz. Continue with amlodipine. #Alcohol abuse -Continue with thiamine. CIWA protocol, 0 today #DVT prophylaxis -Lovenox Plan/VTE VTE Prophylaxis Ordered?: Yes VS, I&O, 24H, Fishbone Vital Signs/I&O Vital Signs Date Time Temp Pulse Resp B/P (MAP) Pulse Ox O2 Delivery O2 Flow Rate FiO2 11/16/20 12:03 98.5 77 18 116/63 (80) 96 Room Air 8/30/21 04:00 2.0 I&O- Last 24 Hours up to 6 AM 11/16/20 06:00 Intake Total 900 ml Output Total 150 ml Balance 750 ml Laboratory Data 24H LABS Laboratory Tests 2 11/15/20 17:14: Bedside Glucose (Misc Panel) 127H 11/15/20 20:15: Bedside Glucose (Misc Panel) 149H 11/16/20 04:53: Nucleated Red Blood Cells % (auto) 0.0, Anion Gap 6L, Glomerular Filtration Rate > 60.0, Calcium Level 8.6L, Phosphorus Level 3.1, Magnesium Level 1.8 11/16/20 11:56: Bedside Glucose (Misc Panel) 124H CBC/BMP Laboratory Tests 11/16/20 04:53 LIV SOLER M.D. Nov 16, 2020 16:31
--- NOTE | 2020-11-17 10:57 | IPNPDOC ---
Subjective Date Seen The patient was seen on 11/17/20. Subjective Chief Complaint/HPI Patient was seen and examined at bedside this morning. He is confused but able to answer questions for review of systems. He denies chest pain, shortness of breath, abdominal pain, palpitations, nausea, vomiting urination and bowel movements. Objective Physical Examination Other physical findings General: Lying in bed, no acute distress Head/Neck/Throat: Trachea midline, mucous membranes moist Eyes: Sclera anicteric, no erythema or discharge appreciated Thorax: Normal respiratory effort on room air, lungs clear to auscultation bilaterally, no wheezes/rales/rhonchi Cardiovascular: Normal rate, regular rhythm, normal S1, S2; no S3, S4, rubs/gallops/murmurs Abdomen: Bowel sounds present, soft/nontender/nondistended Genitourinary: No CVA tenderness, no Elena in place Musculoskeletal: Moving all extremities, no edema Skin: Warm, dry Neurologic: Awake, alert, oriented x2 (did not know the year or the hospital). Forgetful of events. He is able to follow commands. Assessment /Plan Assessment #Hyponatremia -Improving, today sodium is 131. It is possible this may have been due to his poor p.o. intake with the use of alcohol, with underlying use of hyd rochlorothiazide. #Encephalopathy -Toxic metabolic encephalopathy secondary to his alcohol use and dementia. -Continue with thiamine, b12, and folic acid -Donepezil will be added for his dementia. -MRI showed no acute pathology. There was atrophy appreciated -Appreciate neurology input -Concern that this would be the limiting factor for him to return home alone, unless family support is available. #Kuk-hqgdrow-qdrhkwcdt diabetes mellitus -Hold ambulatory oral diabetic medications. Continue with hypoglycemic protocol and sliding scale. #Essential hypertension -Holding hctz. Continue with amlodipine. #Alcohol abuse -Continue with vitamin supplementations. CIWA protocol. This morning it was 0. #DVT prophylaxis -Lovenox Dispo: Patient lives alone but with worsening dementia it may not be ideal for him to return home alone. The daughter is willing to take him home but wants ti me for arrangement and speak to a aids social worker to see possible options for an aid as well. If he is unable to live with family he may require placement until, that to if, his mental status improves. Spoke to administrator social welfare, who is to reach out to family today. Plan/VTE VTE Prophylaxis Ordered?: Yes VS, I&O, 24H, Fishbone Vital Signs/I&O Vital Signs Date Time Temp Pulse Resp B/P (MAP) Pulse Ox O2 Delivery O2 Flow Rate FiO2 11/17/20 08:48 64 141/72 11/17/20 08:00 98.9 17 95 Room Air 11/14/20 04:00 2.0 I&O- Last 24 Hours up to 6 AM 11/17/20 06:00 Intake Total 1560 ml Output Total 0 ml Balance 1560 ml Laboratory Data 24H LABS Laboratory Tests 2 11/16/20 11:56: Bedside Glucose (Misc Panel) 124H 11/16/20 17:09: Bedside Glucose (Misc Panel) 118H 11/16/20 22:17: Bedside Glucose (Misc Panel) 124H 11/17/20 08:26: Nucleated Red Blood Cells % (auto) 0.0, Anion Gap 4L, Glomerular Filtration Rate > 60.0, Calcium Level 8.7L, Phosphorus Level 3.7, Magnesium Level 1.8 CBC/BMP Laboratory Tests 11/17/20 08:26 LIV SOLER M.D. Nov 17, 2020 10:56
[2020-11-17 19:53] VITALS: BP 119/64
[2020-11-18 05:31] VITALS: BP 120/66
[2020-11-18] MEDS: SODIUM CHLORIDE 0.9% INJ 10 ML SYR IV SCH (05:31)
[2020-11-18] MEDS: HumaLOG INSULIN (NovoLOG) PER UNIT SC SCH ×4 (07:30→21:00)
[2020-11-18 08:14] LABS: HEMATOCRIT 41.7 % (42.0-52.0); HEMOGLOBIN 13.7 g/dl (13.5-17.5); MEAN CORPUSCULAR HEMOGLOBIN 30.6 pg (27.0-33.0); MEAN CORPUSCULAR HGB CONC 32.9 g/dl (32.0-36.5); MEAN CORPUSCULAR VOLUME 93.1 fl (80.0-96.0); PLATELET COUNT, AUTOMATED 446 10^3/uL (150-450); RED BLOOD COUNT 4.48 10^6/uL (4.30-6.10); WHITE BLOOD COUNT 6.6 10^3/uL (4.0-10.0)
[2020-11-18 08:41] LABS: BLOOD UREA NITROGEN 8 MG/DL (7-18); CARBON DIOXIDE LEVEL 29 MEQ/L (21-32); CHLORIDE LEVEL 95 MEQ/L (98-107); CREATININE FOR GFR 0.92 MG/DL (0.70-1.30); GLOMERULAR FILTRATION RATE > 60.0 (>42); GLUCOSE, FASTING 144 MG/DL (70-100); POTASSIUM SERUM 4.5 MEQ/L (3.5-5.1); SODIUM LEVEL 130 MEQ/L (136-145)
[2020-11-18] MEDS: ENOXAPARIN 40MG/0.4ML SYRINGE (J1650 PER 10MG) SC SCH (09:00)
[2020-11-18] MEDS: FOLIC ACID 1 MG TAB PO SCH (09:17)
[2020-11-18] MEDS: DONEPEZIL 5 MG TAB PO SCH (09:17)
[2020-11-18] MEDS: CYANOCOBALAMIN 500 MCG TAB PO SCH (09:18)
[2020-11-18] MEDS: CARVedilol 6.25 MG TAB PO SCH ×2 (09:18→21:36)
[2020-11-18] MEDS: MULTIVITAMINS/MINERALS THERAP 1 TAB PO SCH (09:18)
--- NOTE | 2020-11-18 10:10 | IPNPDOC ---
Subjective Date Seen The patient was seen on 11/18/20. Subjective Chief Complaint/HPI Patient was seen and examined at bedside this morning. He reported feeling well, and was able to answer my questions appropriately today. He was able to tell me his in the hospital (was not able to recollect the name of the hospital), but he is able to tell me his 2020 and the president is by him. He had no new complaints and was asking when he could go home. Other systems 10 point review of system was negative except for what is noted in the HPI Objective Physical Examination Other physical findings General: Lying in bed, no acute distress Head/Neck/Throat: Trachea midline, mucous membranes moist Eyes: Sclera anicteric, no erythema or discharge appreciated Thorax: Normal respiratory effort on room air, lungs clear to auscultation bilaterally, no wheezes/rales/rhonchi Cardiovascular: Normal rate, regular rhythm, normal S1, S2; no S3, S4, rubs/gallops/murmurs Abdomen: Bowel sounds present, soft/nontender/nondistended Genitourinary: No CVA tenderness, no Elena in place Musculoskeletal: Moving all extremities, no edema Skin: Warm, dry Neurologic: Awake, alert, oriented x2 (did not know the year or the hospital). Forgetful of events. He is able to follow commands. Assessment /Plan Assessment #Hyponatremia -Improving, today sodium is 131. It is possible this may have been due to his poor p.o. intake with the use of alcohol, with underlying use of hydrochlorothiazide. #Encephalopathy -Toxic metabolic encephalopathy secondary to his alcohol use and dementia. -Continue with thiamine, b12, and folic acid -Donepezil will be added for his dementia. -MRI showed no acute pathology. There was atrophy appreciated -Appreciate neurology input -Concern that this would be the limiting factor for him to return home alone, unless family support is available. #Rir-dwshzqy-rfjuudzfl diabetes mellitus -Hold ambulatory oral diabetic medications. Continue with hypoglycemic protocol and sliding scale. #Essential hypertension -Holding hctz. Continue with amlodipine. #Alcohol abuse -Continue with vitamin supplementations. CIWA protocol. This morning it was 0. #DVT prophylaxis -Lovenox Dispo: Patient lives alone but with worsening dementia it may not be ideal for him to return home alone. gas utility worker helping in appropriate disposition for him. He will likely require 24-hour care. We will make him ALC status today. Plan/VTE VTE Prophylaxis Ordered?: Yes VS, I&O, 24H, Fishbone Vital Signs/I&O Vital Signs Date Time Temp Pulse Resp B/P (MAP) Pulse Ox O2 Delivery O2 Flow Rate FiO2 11/18/20 09:17 56 120/66 11/18/20 05:31 98.0 18 93 Room Air 11/14/20 04:00 2.0 I&O- Last 24 Hours up to 6 AM 11/18/20 06:00 Intake Total 840 ml Balance 840 ml Laboratory Data 24H LABS Laboratory Tests 2 11/17/20 11:46: Bedside Glucose (Misc Panel) 150H 11/17/20 16:52: Bedside Glucose (Misc Panel) 115H 11/17/20 19:57: Bedside Glucose (Misc Panel) 106 11/18/20 07:44: Nucleated Red Blood Cells % (auto) 0.0, Anion Gap 6L, Glomerular Filtration Rate > 60.0, Calcium Level 9.0 CBC/BMP Laboratory Tests 11/18/20 07:44 LIV SOLER M.D. Nov 18, 2020 10:10
[2020-11-18 14:00] VITALS: BP 145/66
[2020-11-18 20:47] VITALS: BP 114/69
[2020-11-19 06:14] VITALS: BP 139/78
[2020-11-19] MEDS: HumaLOG INSULIN (NovoLOG) PER UNIT SC SCH ×2 (07:30→12:00)
[2020-11-19] MEDS: FOLIC ACID 1 MG TAB PO SCH (08:53)
[2020-11-19] MEDS: MULTIVITAMINS/MINERALS THERAP 1 TAB PO SCH (08:53)
[2020-11-19] MEDS: CYANOCOBALAMIN 500 MCG TAB PO SCH (08:53)
[2020-11-19] MEDS: DONEPEZIL 5 MG TAB PO SCH (08:54)
[2020-11-19 08:56] VITALS: BP 127/88
[2020-11-19] MEDS: CARVedilol 6.25 MG TAB PO SCH (08:56)
[2020-11-19] MEDS: ENOXAPARIN 40MG/0.4ML SYRINGE (J1650 PER 10MG) SC SCH (09:00)
[2020-11-19] MEDS ORDERED: B-1100TA2 PO (12:42)
[2020-11-19] MEDS ORDERED: B-12100010 PO (12:42)
[2020-11-19] MEDS ORDERED: ARIC1TAB PO (12:42)
[2020-11-19] MEDS ORDERED: NORV5TAB PO (12:42)
--- NOTE | 2020-11-19 15:26 | DS.PDOC ---
Discharge Summary General Date of Admission Nov 07, 2020 at 21:15 Date of Discharge 11/19/20 Discharge Summary PROCEDURES PERFORMED DURING STAY: [None]. 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 Zenker's diverticulum 4. Hypertension HOSPITAL COURSE: 75-year-old male with a past medical history of diabetes mellitus, hypertension, and alcohol use disorder presented from [facility] for change in mental status. He was admitted for further management. On admission his sodium was noted to be 125 mEq/L. The hyponatremia in addition to his alcohol use was likely the reason for his change in mental status. A brain MRI was done that showed no acute intracranial abnormalities. He was evaluated by the neurology team and it was felt that he had alcohol/Alzheimer's dementia. There was also the suspicion of Wernicke's encephalopathy. He was started on vitamin B12, vitamin B1, and folic acid supplementations. In addition, he was started on donepezil 5 mg daily. His sodium was managed with the assistance of the nephrology team. At the time of discharge his sodium was 130 and stable for several days. He was instructed to follow-up with his primary care physician upon discharge in 5 days and to have repeat blood work done. He was also instructed to follow-up with the neurology team in 10 to 14 days. He normally lives alone, however, due to his mental status there is concerns for him to return home alone. Therefore PFS was involved for safe discharge. It was determined with the collaboration of the family that he would return with his son and live with him. This way patient will have 24-hour supervision. Appropriate paperwork was done by PFS team for possible future aid. At time of discharge patient was in stable condition awake, alert, and oriented x2 (he did not recall the year). The family was explained that this was most likely due to dementia as mentioned above. Of note, speech therapy had a concern for swallowing. Therefore he underwent a cookie swallow study. This was unremarkable, but it was recommended that he be on a level two mechanical soft diet. There was an incidental finding of small Zenker's diverticulum. He needs to follow-up with his primary care physician/supervisor agricultural education. These findings were relayed to the family as well (patient's daughter). It should also be noted that his antihypertensive medications were adjusted. He can follow-up with his primary care physician for further management of his hypertension. DISCHARGE MEDICATIONS: Please see below. ALLERGIES: Please see below. PHYSICAL EXAMINATION ON DISCHARGE: General: Lying in bed, no acute distress Head/Neck/Throat: Trachea midline, mucous membranes moist Eyes: Sclera anicteric, PERRLA Thorax: Normal respiratory effort on room air, lungs clear to auscultation bilaterally, no wheezes/rales/rhonchi Cardiovascular: Normal rate, regular rhythm, normal S1, S2; no S3, S4, rub s/gallops/murmurs Abdomen: Bowel sounds present, soft/nontender/nondistended Genitourinary: No CVA tenderness, no Elena in place Musculoskeletal: Moving all extremities, no edema Skin: Warm, dry Neurologic: AAOx 2 (could not recall the year), speech fluent and goal-directed, no focal deficits, grossly intact LABORATORY DATA: Please see below. IMAGING: MRI IMPRESSION: No acute intracranial abnormality and no abnormal enhancing parenchymal or meningeal lesion Symmetric atrophy and chronic microangiopathic supratentorial and janie white matter changes Cookie study: IMPRESSION: 1. Unremarkable cookie swallow, a detailed report will be provided by speech pathology. 2. An incidental finding of a small Zenker's diverticulum.. Family encouraged to obtain full results of imaging. Vital Signs/I&Os Vital Signs Date Time Temp Pulse Resp B/P (MAP) Pulse Ox O2 Delivery O2 Flow Rate FiO2 11/19/20 08:56 60 127/88 11/19/20 06:14 98.5 20 97 Room Air 11/14/20 04:00 2.0 I&O- Last 24 Hours up to 6 AM 11/19/20 05:59 Intake Total 660 ml Output Total 0 ml Balance 660 ml Laboratory Data Labs 24H Laboratory Tests 2 11/19/20 08:24: Bedside Glucose (Misc Panel) 145H FSBS Laboratory Tests Test 11/19/20 08:24 Range/Units Bedside Glucose (Misc Panel) 145 83-110 MG/DL Discharge Medications Scheduled Amlodipine Besylate (Norvasc) 5 Mg Tablet, 1 TAB PO DAILY Aspirin (Aspirin EC) 81 Mg Tablet.dr, 81 MG PO DAILY, (Reported) Cholecalciferol (Vitamin D3) (Vitamin D3) 1,000 Unit Tablet, 2,000 UNITS PO TIBURCIO LY, (Reported) Cyanocobalamin (Vitamin B-12) (Vitamin B-12) 1,000 Mcg Capsule, 1,000 MCG PO DAILY Donepezil HCl (Aricept) 5 Mg Tablet, 5 MG PO DAILY Folic Acid (Folic Acid) 1 Mg Tablet, 1 MG PO DAILY, (Reported) Losartan Potassium (Losartan Potassium) 100 Mg Tablet, 100 MG PO DAILY, (Reported) Metformin HCl (Metformin HCl) 500 Mg Tablet, 500 MG PO BID, (Reported) Thiamine HCl (Vitamin B-1) 100 Mg Tablet, 100 MG PO DAILY Allergies Coded Allergies: No Known Allergies (Verified Allergy, Unknown, 11/07/20) LIV SOLER M.D. Nov 19, 2020 15:13
== END 2020-11-19 13:35 | disposition home health service (06) | DRG 57 ==
LOC: M ICU 21:15 → M PCU 11-13 07:50 → M MS5PR 11-17 15:44
PROVIDERS: ADMIT Internal Medicine; ATTEND Internal Medicine
PROC: 05HA33Z Insertion of Infusion Device into Left Brachial Vein, Percutaneous Approach (ICD-10-PCS; principal; 2020-11-09 17:00)
DX: G30.9 Alzheimer's disease, unspecified (principal); E87.1 Hypo-osmolality and hyponatremia; F10.231 Alcohol dependence with withdrawal delirium; F02.81 Dementia in other diseases classified elsewhere, unspecified severity, with behavioral disturbance; E51.2 Wernicke's encephalopathy; E87.5 Hyperkalemia; R09.02 Hypoxemia; E11.9 Type 2 diabetes mellitus without complications; K22.5 Diverticulum of esophagus, acquired; I10 Essential (primary) hypertension; E83.42 Hypomagnesemia; Z79.82 Long term (current) use of aspirin; Z79.84 Long term (current) use of oral hypoglycemic drugs; Z79.899 Other long term (current) drug therapy; Z20.822 Contact with and (suspected) exposure to COVID-19; Z87.891 Personal history of nicotine dependence